=== PATIENT | female | born 1990 | race American Indian/Alaskan Native ===

== ENCOUNTER 2016-09-21 00:17 | Emergency (ER) | payer BC, MEDICAID ==
[2016-09-21 00:18] VITALS: BMI 24.7
[2016-09-21 00:32] VITALS: PULSE 105; RESP 18; TEMP 97.9; O2SAT 99
--- NOTE | 2016-09-21 00:43 | ED PDOC ---
Arrival/HPI - General Historian: Patient - History of Present Illness Time/Duration: 1 week Context: Home <Solomon Aguirre - Last Filed: 09/21/16 00:39> <Naseem Almanza - Last Filed: 09/21/16 02:47> - General Chief Complaint: Female Genitourinary Time Seen by Provider: 09/21/16 00:29 - History of Present Illness Narrative History of Present Illness (Text): 09/21/16 00:40 This 26 yo female with pmh hyperthyroidism, presents to this ED c/o abdominal pain x 1 week. Pain has worsen last 2 days. Patient admits urinary frequency. Denies vaginal discharge, dysuria, or dizziness. (Solomon Aguirre) Past Medical History - Provider Review Nursing Documentation Reviewed: Yes - Infectious Disease Hx of Infectious Diseases: None - Endocrine/Metabolic Hx Hyperthyroidism: Yes - Psychiatric Hx Substance Use: No - Anesthesia Hx Anesthesia: No <Solomon Aguirre P - Last Filed: 09/21/16 00:39> Family/Social History - Physician Review Nursing Documentation Reviewed: Yes Family/Social History: No Known Family HX Smoking Status: Never Smoked Hx Alcohol Use: No Hx Substance Use: No <Solomon Aguirre - Last Filed: 09/21/16 00:39> Allergies/Home Meds <Solomon Aguirre - Last Filed: 09/21/16 00:39> <Naseem Almanza - Last Filed: 09/21/16 02:47> Allergies/Adverse Reactions: Allergies No Known Allergies Allergy (Verified 05/26/16 10:40) Home Medications: Home Meds Medication Instructions Recorded Confirmed No Known Home Med 05/26/16 09/21/16 Review of Systems - Review of Systems Constitutional: Normal. absent: Fatigue, Weight Change, Fevers Eyes: Normal ENT: Normal Respiratory: Normal. absent: SOB, Cough, Sputum, Wheezing Cardiovascular: Normal. absent: Chest Pain, Palpitations Gastrointestinal: Abdominal Pain, Constipation. absent: Diarrhea, Nausea, Vomiting Genitourinary Female: Frequency. absent: Dysuria, Hematuria, Vaginal Bleeding, Vaginal Discharge Musculoskeletal: Normal. absent: Back Pain Skin: Normal. absent: Rash Neurological: Normal. absent: Headache, Dizziness, Focal Weakness, Gait Changes , Speech Changes, Facial Droop Endocrine: Normal Hemo/Lymphatic: Normal Psychiatric: Normal <Solomon Aguirre - Last Filed: 09/21/16 00:39> Physical Exam Temperature: Afebrile Blood Pressure: Normal Pulse: Regular Respiratory Rate: Normal Appearance: Positive for: Well-Appearing, Non-Toxic, Comfortable Pain Distress: None Mental Status: Positive for: Alert and Oriented X 3 - Systems Exam Head: Present: Atraumatic, Normocephalic Pupils: Present: PERRL Extroacular Muscles: Present: EOMI Conjunctiva: Present: Normal Mouth: Present: Moist Mucous Membranes Neck: Present: Normal Range of Motion. No: Meningeal Signs, MIDLINE TENDERNESS Respiratory/Chest: Present: Clear to Auscultation, Good Air Exchange. No: Respiratory Distress, Accessory Muscle Use, Wheezes, Retracting, Rhonchi Cardiovascular: Present: Regular Rate and Rhythm, Normal S1, S2. No: Murmurs Abdomen: Present: Normal Bowel Sounds. No: Tenderness, Distention, Peritoneal Signs, Rebound, Guarding, McBurney's Point Tender, Rovsing's Sign Present, Scars Back: Present: Normal Inspection. No: CVA Tenderness Upper Extremity: Present: Normal Inspection. No: Cyanosis, Edema Lower Extremity: Present: Normal Inspection, NORMAL PULSES, Normal ROM, Neurovascularly Intact, Capillary Refill < 2 s. No: Edema, CALF TENDERNESS, Cyanosis, Hattie's Sign, Swelling, Erythema, Temperature Abnormalties Neurological: Present: GCS=15, CN II-XII Intact, Speech Normal, Motor Func Grossly Intact, Normal Sensory Function, Normal Cerebellar Funct, Gait Normal, Memory Normal Skin: Present: Warm, Dry, Normal Color. No: Rashes Lymphatic: No: Inguinal Adenopathy Psychiatric: Present: Alert, Oriented x 3, Normal Insight, Normal Concentration <TimothySolomon P - Last Filed: 09/21/16 00:39> Medical Decision Making Re-evaluation Time: 02:46 Reassessment Condition: Re-examined, Improved <Naseem Almanza - Last Filed: 09/21/16 02:47> - Lab Interpretations Lab Results: 09/21/16 01:04 09/21/16 01:04 Lab Results 09/21/16 01:04: Sodium 139, Potassium 4.3, Chloride 103, Carbon Dioxide 28, Anion Gap 12, BUN 8, Creatinine 0.4 L, Est GFR ( Amer) > 60, Est GFR (Non -Af Amer) > 60, Random Glucose 95, Calcium 9.2, Total Bilirubin 0.4, AST 21, ALT 28, Alkaline Phosphatase 80, Total Protein 8.4 H, Albumin 4.1, Globulin 4.2 , Albumin/Globulin Ratio 1.0 L 09/21/16 01:04: WBC 6.5, RBC 4.12, Hgb 9.5 L, Hct 30.0 L, MCV 72.8 L, MCH 23.1 L , MCHC 31.7, RDW 16.0 H, Plt Count 322, MPV 9.4, Neutrophils % (Manual) 38 L, Lymphocytes % (Manual) 53 H, Atypical Lymphs % 1 H, Monocytes % (Manual) 8 H, Platelet Evaluation Normal, Anisocytosis (manual) Slight, Ovalocytes Slight 09/21/16 00:47: Urine HCG, Qual Negative 09/21/16 00:34: Urine Color Yellow, Urine Appearance Clear, Urine pH 6.5, Ur Specific [place] 1.025, Urine Protein Negative, Urine Glucose (UA) Negative, Urine Ketones Negative, Urine Blood Negative, Urine Nitrate Negative, Urine Bilirubin Negative, Urine Urobilinogen 1.0 H, Ur Leukocyte Esterase Negative - RAD Interpretation Radiology Orders: 09/21/16 01:50 TRANSVAGINAL [US] Stat - PA / CEMENT MASON HELPER / Resident Statement JOYA has reviewed & agrees with the documentation as recorded. JOYA has examined the patient and agrees with the treatment plan. <Naseem Almanza - Last Filed: 09/21/16 02:47> Disposition/Present on Arrival - Present on Arrival History of DVT/PE: No History of Uncontrolled Diabetes: No Urinary Catheter: No History of Decub. Ulcer: No History Surgical Site Infection Following: None <Solomon Aguirre - Last Filed: 09/21/16 00:39> - Present on Arrival Any Indicators Present on Arrival: No - Disposition Have Diagnosis and Disposition been Completed?: Yes Disposition Time: 02:47 <Naseem Almanza - Last Filed: 09/21/16 02:47> - Disposition Diagnosis: Ovarian cyst Disposition: HOME/ ROUTINE Condition: GOOD Discharge Instructions (ExitCare): Ovarian Cyst (ED)
[2016-09-21 01:01] LABS: PH,URINE 6.5 (4.7-8.0); URINE BILIRUBIN NEGATIVE (NEGATIVE); URINE BLOOD NEGATIVE (NEGATIVE); URINE GLUCOSE (UA) NEGATIVE (NEGATIVE); URINE KETONE NEGATIVE (NEGATIVE); URINE LEUKOCYTE ESTERASE NEGATIVE Leu/uL (NEGATIVE); URINE PROTEIN NEGATIVE mg/dL (<30 mg/dL)
[2016-09-21 01:03] LABS: URINE APPEARANCE CLEAR (CLEAR); URINE COLOR YELLOW (YELLOW)
[2016-09-21 01:35] LABS: MEAN CELL VOLUME 72.8 fL (80.0-105.0); MEAN CORPUSCULAR HEMOGLOBIN 23.1 pg (25.0-35.0); MEAN CORPUSCULAR HGB CONC 31.7 g/dl (31.0-37.0); MEAN PLATELET VOLUME 9.4 fl (7.0-11.0); PLATELET COUNT 322 10^3/uL (120.0-450.0); WHITE BLOOD COUNT 6.5 10^3/ul (4.5-11.0)
[2016-09-21 01:37] LABS: ADD MANUAL DIFF? YES
[2016-09-21 01:46] LABS: ALKALINE PHOSPHATASE 80 U/L (38-133); ALT/SGPT 28 U/L (7-56); AST/SGOT 21 U/L (15-39); BILIRUBIN,TOTAL 0.4 mg/dL (0.2-1.3); BLOOD UREA NITROGEN 8 mg/dL (7-21); CALCIUM 9.2 mg/dL (8.4-10.5); CARBON DIOXIDE 28 mmol/L (21-33); CHLORIDE 103 mmol/L (98-107); GFR AFRICAN-AMERICAN > 60; GLUCOSE,RANDOM 95 mg/dL (70-110); POTASSIUM 4.3 mmol/L (3.6-5.0); SODIUM 139 mmol/L (132-148); TOTAL PROTEIN 8.4 g/dL (5.8-8.3)
[2016-09-21 02:03] LABS: ATYPICAL LYMPHOCYTE 1 % (0.0-0.0); NEUTROPHIL 38 % (50.0-70.0)
[2016-09-21 02:04] LABS: PLATELET ESTIMATE NORMAL (NORMAL)
[2016-09-21 02:05] LABS: ANISOCYTOSIS SLIGHT; OVALOCYTES SLIGHT
--- NOTE | 2016-09-21 02:54 | ED PDOC ---
Physical Exam Vital Signs Reviewed: Yes Vital Signs Temp Pulse Resp BP Pulse Ox 09/21/16 00:29 97.9 F 105 H 18 128/82 99 Temperature: Afebrile Blood Pressure: Normal Pulse: Tachycardic Respiratory Rate: Normal Appearance: Positive for: Well-Appearing, Non-Toxic, Comfortable Pain Distress: None Mental Status: Positive for: Alert and Oriented X 3 Medical Decision Making ED Course and Treatment: 09/21/16 02:53 Patient signed out to me by JOSEE Carbajal, pending US, reevaluation and disposition. Ultrasound results reviewed: EXAM: US Pelvis, Transvaginal FINDINGS: Uterus/cervix: The uterus measures 7.8 x 4.6 x 6.5 cm Normal endometrial stripe thickness. No myometrial mass.The endometrial stripe measures 1.2 cm. Right ovary: Probable dominant ovarian follicular cyst present on the right. This measures 1.6 cm. Normal blood flow. Left ovary: Unremarkable. No mass. Normal blood flow. Free fluid: No free fluid. IMPRESSION: No acute findings 09/21/16 04:18 On re-evaluation, patient feels better and is in no acute distress. I have discussed the results and plan with the patient, who expresses understanding. Patient in agreement with plan to be discharged home. Patient is stable for discharge. Patient was instructed to follow up with physician or return if symptoms worsen or new concerning symptoms arise. 09/21/16 06:41 recieved call from lab ua preg weakly positive , serum bhcg 25 - Lab Interpretations Lab Results: 09/21/16 01:04 09/21/16 01:04 Lab Results 09/21/16 01:04: Sodium 139, Potassium 4.3, Chloride 103, Carbon Dioxide 28, Anion Gap 12, BUN 8, Creatinine 0.4 L, Est GFR ( Amer) > 60, Est GFR (Non -Af Amer) > 60, Random Glucose 95, Calcium 9.2, Total Bilirubin 0.4, AST 21, ALT 28, Alkaline Phosphatase 80, Total Protein 8.4 H, Albumin 4.1, Globulin 4.2 , Albumin/Globulin Ratio 1.0 L 09/21/16 01:04: WBC 6.5, RBC 4.12, Hgb 9.5 L, Hct 30.0 L, MCV 72.8 L, MCH 23.1 L , MCHC 31.7, RDW 16.0 H, Plt Count 322, MPV 9.4, Neutrophils % (Manual) 38 L, Lymphocytes % (Manual) 53 H, Atypical Lymphs % 1 H, Monocytes % (Manual) 8 H, Platelet Evaluation Normal, Anisocytosis (manual) Slight, Ovalocytes Slight 09/21/16 00:47: Urine HCG, Qual Negative 09/21/16 00:34: Urine Color Yellow, Urine Appearance Clear, Urine pH 6.5, Ur Specific [place] 1.025, Urine Protein Negative, Urine Glucose (UA) Negative, Urine Ketones Negative, Urine Blood Negative, Urine Nitrate Negative, Urine Bilirubin Negative, Urine Urobilinogen 1.0 H, Ur Leukocyte Esterase Negative - RAD Interpretation Radiology Orders: 09/21/16 01:50 TRANSVAGINAL [US] Stat - Scribe Statement The provider has reviewed the documentation as recorded by the Scribe Anabel Mcnally All medical record entries made by the Scribe were at my direction and personally dictated by me. I have reviewed the chart and agree that the record accurately reflects my personal performance of the history, physical exam, medical decision making, and the department course for this patient. I have also personally directed, reviewed, and agree with the discharge instructions and disposition. Disposition/Present on Arrival - Present on Arrival Any Indicators Present on Arrival: No History of DVT/PE: No History of Uncontrolled Diabetes: No Urinary Catheter: No History of Decub. Ulcer: No History Surgical Site Infection Following: None - Disposition Have Diagnosis and Disposition been Completed?: Yes Diagnosis: Ovarian cyst Disposition: HOME/ ROUTINE Disposition Time: 03:05 Condition: GOOD Discharge Instructions (ExitCare): Ovarian Cyst (ED)
[2016-09-21 03:04] VITALS: BP 129/73
--- NOTE | 2016-09-21 10:37 | US ---
HISTORY: pelvic pain COMPARISON: None available. TECHNIQUE: Transvaginal FINDINGS: UTERUS: Measures 7.8 x 4.5 x 6.4 cm. Normal in size and anteverted appearance. No fibroid or other mass lesion seen. ENDOMETRIUM: Measures 12 mm in diameter. Unremarkable. CERVIX: No cervical abnormality identified. RIGHT OVARY: Measures 3.4 x 1.8 x 3 point cm. No solid mass. Normal flow. A dominant right ovarian follicular cyst suggested measuring 1.3 x 1.2 x 1.6 cm LEFT OVARY: Measures 3.2 x 1.5 x 2.9 cm. No solid mass. Normal flow. FREE FLUID: No significant free fluid noted. OTHER FINDINGS: None. IMPRESSION: Right ovarian dominant follicular cyst -otherwise unremarkable. Preliminary V rad report provided. V rad report concordant with this report
== END 2016-09-21 03:07 | disposition home or self-care (01) ==
LOC: ED 00:17
DX: N83.201 Unspecified ovarian cyst, right side (principal)

== ENCOUNTER 2016-09-24 14:18 | Emergency (ER) | payer BC ==
[2016-09-24 14:19] VITALS: BMI 24.7
[2016-09-24 14:31] VITALS: TEMP 98.6; O2SAT 99
[2016-09-24] MEDS ORDERED: Sodium Chloride 0.9% 1,000 ML IV STA (14:50)
--- NOTE | 2016-09-24 14:53 | ED PDOC ---
Arrival/HPI - General Chief Complaint: Abdominal Pain Time Seen by Provider: 09/24/16 14:44 Historian: Patient - History of Present Illness Narrative History of Present Illness (Text): 09/24/16 14:50 26 year old female, pmh including hyperthyroidism, nkda, LMP: around 1st week of august 2016, , approx. 3-4 weeks as per patient, stated that she has abdominal cramp on and off x 2 weeks. Pt. was seen in the ER about 3 days ago, told she has ovarian cyst then later told she is , beta hcg at weak level, here for the follow up today. Pt. stated that she has no urinary symptoms, admits been having hard stool for the past 2 weeks, last bowel movement was this morning with small hard stool, no rectal pain, no vaginal bleeding or discharge, no nausea or vomiting, appetize remains the approximately the same, no other medical or psychological complaints. Time/Duration: < month Past Medical History - Provider Review Nursing Documentation Reviewed: Yes - Infectious Disease Hx of Infectious Diseases: None - Cardiac Hx Cardiac Disorders: No - Pulmonary Hx Respiratory Disorders: No - Neurological Hx Neurological Disorder: No - HEENT Hx HEENT Disorder: No - Endocrine/Metabolic Hx Hyperthyroidism: Yes - Hematological/Oncological Hx Blood Disorders: No - Integumentary Hx Dermatological Disorder: No - Musculoskeletal/Rheumatological Hx Musculoskeletal Disorders: No - Gastrointestinal Hx Gastrointestinal Disorders: No - Genitourinary/Gynecological Hx Genitourinary Disorders: No - Psychiatric Hx Psychophysiologic Disorder: No Hx Substance Use: No - Anesthesia Hx Anesthesia: No Family/Social History - Physician Review Nursing Documentation Reviewed: Yes Family/Social History: Unknown Family HX Smoking Status: Never Smoked Hx Alcohol Use: No Hx Substance Use: No Allergies/Home Meds Allergies/Adverse Reactions: Allergies No Known Allergies Allergy (Verified 09/24/16 14:26) Review of Systems - Review of Systems Constitutional: absent: Fatigue, Fevers Eyes: absent: Vision Changes ENT: absent: Hearing Changes Respiratory: absent: SOB, Cough, Sputum Cardiovascular: absent: Chest Pain Gastrointestinal: Abdominal Pain. absent: Diarrhea, Nausea, Vomiting Musculoskeletal: absent: Arthralgias, Back Pain, Neck Pain, Joint Swelling, Myalgias Neurological: absent: Headache, Dizziness, Focal Weakness, Gait Changes, Speech Changes Psychiatric: absent: Anxiety, Depression, Suicidal Ideation Physical Exam Vital Signs Reviewed: Yes Vital Signs Temp Pulse Resp BP Pulse Ox 09/24/16 17:00 91 H 18 123/64 99 09/24/16 15:29 102 H 18 125/69 99 09/24/16 14:30 98.6 F 124 H 17 127/72 99 Temperature: Afebrile Blood Pressure: Normal Pulse: Tachycardic Respiratory Rate: Normal Appearance: Positive for: Well-Appearing, Non-Toxic, Comfortable Pain Distress: Mild Mental Status: Positive for: Alert and Oriented X 3 - Systems Exam Head: Present: Atraumatic, Normocephalic Pupils: Present: PERRL Extroacular Muscles: Present: EOMI Conjunctiva: Present: Normal Mouth: Present: Moist Mucous Membranes Neck: Present: Normal Range of Motion, Trachea Midline. No: Meningeal Signs, MIDLINE TENDERNESS, Paraspinal Tenderness, Lymphadenopathy Respiratory/Chest: Present: Clear to Auscultation, Good Air Exchange. No: Respiratory Distress, Accessory Muscle Use, Wheezes, Decreased Breath Sounds, Rales, Retracting, Rhonchi, Tachypneic, Tender to Palpation, Other Cardiovascular: Present: Regular Rate and Rhythm, Normal S1, S2. No: Murmurs Abdomen: Present: Normal Bowel Sounds. No: Tenderness, Distention, Peritoneal Signs, Rebound, Guarding Genitourinary/Pelvic Exam: Present: Normal External Genitalia, Vaginal Discharge (vaginal canal noted to have cottage cheese like material with cream white color), Cervical os Closed, Other (female [employer] global product leadership: TEODORO Maldonado). No : Vaginal Bleeding, Vaginal Lesions, Adenexal Tenderness, Adenexal Mass, Cervical Motion Tendernes, Odor Back: Present: Normal Inspection Upper Extremity: Present: Normal Inspection. No: Cyanosis, Edema Lower Extremity: Present: Normal Inspection. No: Edema Neurological: Present: GCS=15, Speech Normal, Motor Func Grossly Intact, Gait Normal, Memory Normal Skin: Present: Warm, Dry, Normal Color. No: Rashes Psychiatric: Present: Alert, Oriented x 3, Normal Insight, Normal Concentration Medical Decision Making ED Course and Treatment: 09/24/16 14:55 -labs/ua/beta hcg -transvaginal sonogram -IVF bolus/tylenol -observe and reassess 09/24/16 16:41 -Labs are non-significant except beta hcg 91.60 (around 92) which is uptrend from the previous charted beta hcg 25 with lab ua preg weakly positive on 06:41, +vaginal yeast cell noted. -Sonogram show cyst on the rt. ovary with no intrauterine gestational sac identified which I discussed with Dr. Zayda Portillo and stated that this is likely too early to tell which the beta hcg today is around 92 approx. 3-4 weeks. -Pain resolved. Abdominal is soft with no tenderness or guarding. -Urinalysis show no UTI but there is vaginal yeast cell noted, physical examination does show cottage cheese like vaginal yeast. -Case discussed with ER attending Dr. Brantley, he agreed on the treatment and dispo plan. -Discharge home with topical antifungal vaginal cream, return to the ER for repeat betahcg in 48 hours but return sooner for any new or worsening signs or symptoms, follow up with your own pmd and obgyn within 2 days, return to the ER for any new or worsening signs or symptoms. - Lab Interpretations Lab Results: 09/24/16 14:55 09/24/16 14:55 Lab Results 09/24/16 15:25: Urine Color Yellow, Urine Appearance Clear, Urine pH 6.0, Ur Specific [place] 1.020, Urine Protein Trace H, Urine Glucose (UA) Negative, Urine Ketones Trace H, Urine Blood Trace-intact H, Urine Nitrate Negative, Urine Bilirubin Negative, Urine Urobilinogen 0.2, Ur Leukocyte Esterase Negative , Urine RBC 2 - 5, Urine WBC 0 - 2, Ur Epithelial Cells 6 - 8, Urine Bacteria Many, Urine Other Uyeast 09/24/16 14:55: Beta HCG, Quant 91.60 H 09/24/16 14:55: Sodium 141, Potassium 4.5, Chloride 105, Carbon Dioxide 26, Anion Gap 15, BUN 14, Creatinine 0.4 L, Est GFR ( Amer) > 60, Est GFR ( Non-Af Amer) > 60, Random Glucose 105, Calcium 9.4, Total Bilirubin 0.4, AST 20 , ALT 20, Alkaline Phosphatase 84, Total Protein 8.6 H, Albumin 4.2, Globulin 4.5, Albumin/Globulin Ratio 0.9 L 09/24/16 14:55: WBC 6.2, RBC 4.50, Hgb 10.3 L, Hct 32.5 L, MCV 72.2 L, MCH 22.9 L, MCHC 31.7, RDW 16.3 H, Plt Count 386, MPV 9.7, Gran % 48.9 L, Lymph % (Auto) 36.2 H, [place] % (Auto) 14.1 H, Eos % (Auto) 0.6 L, Baso % (Auto) 0.2, Gran # 3.04 , Lymph # 2.3, [place] # 0.9 H, Eos # 0.0, Baso # 0.01 I have reviewed the lab results: Yes Interpretation: Abnormal lab values (beta hcg 91.60 (around 92) which is uptrend from the previous charted beta hcg 25 with lab ua preg weakly positive on 09/21/16 06:41, +vaginal yeast cell noted.) - RAD Interpretation Radiology Orders: 09/24/16 14:46 TRANSVAGINAL [US] Stat Pelvic ultrasound History: Lower pelvic cramps. Comparison: Ultrasound from 09/21/2016 Technique: Transabdominal and transvaginal ultrasonography images of the uterus and both adnexa obtained. Findings: The uterus is anteverted and measures 7.8 x 3.7 x 4.8 centimeters. The endometrium measures 1.3 centimeters. The cervix measures 3.1 centimeters. Suboptimal evaluation of the cervix. No intrauterine gestational sac identified. The right ovary measures 2.3 x 2.2 x 2.3 centimeters. A hypoechoic slightly complex cyst measuring 1.4 x 1.4 x 1.5 centimeters is noted. Doppler flow seen within the right ovary. Left ovary measures 2 x 1.5 x 1.7 centimeter. Doppler flow seen within the left ovary. No significant free fluid in the cul-de-sac. Impression: No intrauterine gestational sac identified. Slightly complex cyst in the right ovary. Follow-up ultrasound to ensure resolution should be obtained. According to discussion with JOSEE Ball, beta HCG is upward stranding. Current beta HCG 92. Based on current HCG levels, early can be considered. However, follow -up beta hCG should be obtained. Ectopic or spontaneous cannot be excluded based on current imaging. Close interval follow-up should be obtained. Discussed with JOSEE Ball at approximately 4:10 p.m. on 09/24/2016. Practical Nurse Clinical Coordinator: Radiologist - Medication Orders Current Medication Orders: Discontinued Medications Acetaminophen (Tylenol 325mg Tab) 650 mg PO STAT STA Stop: 09/24/16 14:51 Last Admin: 09/24/16 15:32 Dose: 650 mg Sodium Chloride (Sodium Chloride 0.9%) 1,000 mls @ 999 mls/hr IV .Q1H1M STA Stop: 09/24/16 15:50 Last Admin: 09/24/16 17:00 Dose: - PA / BUSINESS CONTINUITY COORDINATOR / Resident Statement MD/ has reviewed & agrees with the documentation as recorded. Disposition/Present on Arrival - Present on Arrival Any Indicators Present on Arrival: No History of DVT/PE: No History of Uncontrolled Diabetes: No Urinary Catheter: No History of Decub. Ulcer: No History Surgical Site Infection Following: None - Disposition Have Diagnosis and Disposition been Completed?: Yes Diagnosis: , Vaginal yeast infection Disposition: HOME/ ROUTINE Disposition Time: 16:49 Patient Plan: Discharge Patient Problems: Current Active Problems Problem Status Onset Acute Vaginal yeast infection Acute Condition: IMPROVED Additional Instructions: Discharge home with topical antifungal vaginal cream, return to the ER for repeat betahcg in 48 hours but return sooner for any new or worsening signs or symptoms, follow up with your own pmd and obgyn within 2 days, return to the ER for any new or worsening signs or symptoms. Prescriptions: Miconazole 2% Vaginal [Monistat 7 Vaginal Cream] 1 applic VG HS #1 tube Referrals: PCP,NO [Primary Care Provider] - Follow up with primary Jennie Hurt MD [Medical Doctor] - Follow up with primary Forms: WORK NOTE
[2016-09-24 15:14] LABS: ADD MANUAL DIFF? NO
[2016-09-24 15:30] VITALS: RESP 18
[2016-09-24 15:32] LABS: ALB/GLOB RATIO 0.9 (1.1-1.8); ALKALINE PHOSPHATASE 84 U/L (38-133); ALT/SGPT 20 U/L (7-56); AST/SGOT 20 U/L (15-39); BASO # 0.01 K/mm3 (0.0-2.0); BASO % 0.2 % (0.0-3.0); BILIRUBIN,TOTAL 0.4 mg/dL (0.2-1.3); BLOOD UREA NITROGEN 14 mg/dL (7-21); CALCIUM 9.4 mg/dL (8.4-10.5); CARBON DIOXIDE 26 mmol/L (21-33); CHLORIDE 105 mmol/L (98-107); EOS % 0.6 % (1.5-5.0); GFR AFRICAN-AMERICAN > 60; GLUCOSE,RANDOM 105 mg/dL (70-110); GRAN # 3.04 (1.4-6.5); GRAN % 48.9 % (50.0-68.0); HEMATOCRIT 32.5 % (36.0-48.0); LYMPH # 2.3 (1.2-3.4); LYMPH % 36.2 % (22.0-35.0); MEAN CELL VOLUME 72.2 fL (80.0-105.0); MEAN CORPUSCULAR HEMOGLOBIN 22.9 pg (25.0-35.0); MEAN CORPUSCULAR HGB CONC 31.7 g/dl (31.0-37.0); MEAN PLATELET VOLUME 9.7 fl (7.0-11.0); MONO # 0.9 (0.1-0.6); MONO % 14.1 % (1.0-6.0); PLATELET COUNT 386 10^3/uL (120.0-450.0); POTASSIUM 4.5 mmol/L (3.6-5.0); RED CELL DISTRIBUTION WIDTH 16.3 % (11.5-14.5); SODIUM 141 mmol/L (132-148); TOTAL PROTEIN 8.6 g/dL (5.8-8.3); WHITE BLOOD COUNT 6.2 10^3/ul (4.5-11.0)
[2016-09-24 15:40] LABS: URINE BILIRUBIN NEGATIVE (NEGATIVE); URINE BLOOD TRACE-INTACT (NEGATIVE); URINE GLUCOSE (UA) NEGATIVE (NEGATIVE); URINE KETONE TRACE mg/dL (NEGATIVE); URINE LEUKOCYTE ESTERASE NEGATIVE Leu/uL (NEGATIVE); URINE PROTEIN TRACE mg/dL (<30 mg/dL); URINE UROBILINOGEN 0.2 E.U./dL (<1 E.U./dL)
[2016-09-24 15:48] LABS: URINE APPEARANCE CLEAR (CLEAR); URINE COLOR YELLOW (YELLOW)
[2016-09-24 15:50] LABS: URINE BACTERIA MANY (NEG); URINE WBC 0 - 2 /hpf (0-6)
--- NOTE | 2016-09-24 16:13 | US ---
Pelvic ultrasound History: Lower pelvic cramps. Comparison: Ultrasound from 09/21/2016 Technique: Transabdominal and transvaginal ultrasonography images of the uterus and both adnexa obtained. Findings: The uterus is anteverted and measures 7.8 x 3.7 x 4.8 centimeters. The endometrium measures 1.3 centimeters. The cervix measures 3.1 centimeters. Suboptimal evaluation of the cervix. No intrauterine gestational sac identified. The right ovary measures 2.3 x 2.2 x 2.3 centimeters. A hypoechoic slightly complex cyst measuring 1.4 x 1.4 x 1.5 centimeters is noted. Doppler flow seen within the right ovary. Left ovary measures 2 x 1.5 x 1.7 centimeter. Doppler flow seen within the left ovary. No significant free fluid in the cul-de-sac. Impression: No intrauterine gestational sac identified. Slightly complex cyst in the right ovary. Follow-up ultrasound to ensure resolution should be obtained. According to discussion with JOSEE Ball, beta HCG is upward stranding. Current beta HCG 92. Based on current HCG levels, early can be considered. However, follow-up beta hCG should be obtained. Ectopic or spontaneous cannot be excluded based on current imaging. Close interval follow-up should be obtained. Discussed with JOSEE Ball at approximately 4:10 p.m. on 09/24/2016.
[2016-09-24 17:05] VITALS: BP 123/64; PULSE 91
== END 2016-09-24 17:41 | disposition home or self-care (01) ==
LOC: ED 14:18
DX: O98.811 Other maternal infectious and parasitic diseases complicating pregnancy, first trimester (principal); B37.3 Candidiasis of vulva and vagina

== ENCOUNTER 2016-09-26 14:08 | Emergency (ER) | payer BC ==
[2016-09-26 14:09] VITALS: BMI 24.7
[2016-09-26 15:13] VITALS: TEMP 98.3; O2SAT 100
[2016-09-26 16:06] LABS: URINE APPEARANCE CLEAR (CLEAR); URINE BILIRUBIN NEGATIVE (NEGATIVE); URINE BLOOD NEGATIVE (NEGATIVE); URINE COLOR YELLOW (YELLOW); URINE GLUCOSE (UA) NEGATIVE (NEGATIVE); URINE KETONE NEGATIVE (NEGATIVE); URINE LEUKOCYTE ESTERASE NEGATIVE Leu/uL (NEGATIVE); URINE PROTEIN NEGATIVE mg/dL (<30 mg/dL); URINE UROBILINOGEN 0.2 E.U./dL (<1 E.U./dL)
[2016-09-26 17:48] VITALS: BP 125/78; RESP 18
--- NOTE | 2016-09-26 18:11 | ED PDOC ---
Arrival/HPI - General Chief Complaint: Medical Clearance Time Seen by Provider: 09/26/16 15:09 Historian: Patient - History of Present Illness Narrative History of Present Illness (Text): 09/26/16 18:10 26yr old female presents today for repeat beta hcg. pt states that she was seen in the ER 2 days ago and had Ultrasound and was told B-hcg was low and needed to be repeated; pt states she has been having intermittent lower abdominal pain. + constipation. denies fever/chills. no vaginal bleeding or discharge. pt denies any urinary symptoms. pt states she is being treated for yeast infection. pt states she has slight lower abdominal pressure. no vomiting/ diarrhea. pt states she has appointment with SUPERVISOR NET MAKING in 4 days. no other complaints. Time/Duration: 1 week Symptom Onset: Gradual Symptom Course: Unchanged Quality: Pressure Severity Level: 2 Past Medical History - Provider Review Nursing Documentation Reviewed: Yes - Travel History Have you recently traveled outside [place] w/in the past 3 mons?: No - Infectious Disease Hx of Infectious Diseases: None - Cardiac Hx Cardiac Disorders: No - Pulmonary Hx Respiratory Disorders: No - Neurological Hx Neurological Disorder: No - HEENT Hx HEENT Disorder: No - Endocrine/Metabolic Hx Hyperthyroidism: Yes - Hematological/Oncological Hx Blood Disorders: No - Integumentary Hx Dermatological Disorder: No - Musculoskeletal/Rheumatological Hx Musculoskeletal Disorders: No - Gastrointestinal Hx Gastrointestinal Disorders: No - Genitourinary/Gynecological Hx Genitourinary Disorders: No - Psychiatric Hx Psychophysiologic Disorder: No Hx Substance Use: No - Anesthesia Hx Anesthesia: No Family/Social History - Physician Review Nursing Documentation Reviewed: Yes Family/Social History: Unknown Family HX Smoking Status: Never Smoked Hx Alcohol Use: No Hx Substance Use: No Allergies/Home Meds Allergies/Adverse Reactions: Allergies No Known Allergies Allergy (Verified 09/26/16 15:09) Review of Systems - Review of Systems Constitutional: absent: Fatigue, Fevers Respiratory: absent: SOB, Cough Cardiovascular: absent: Chest Pain, Palpitations Gastrointestinal: Abdominal Pain, Constipation. absent: Diarrhea, Nausea, Vomiting Genitourinary Female: absent: Dysuria, Frequency, Hematuria, Vaginal Bleeding, Vaginal Discharge Musculoskeletal: absent: Arthralgias, Back Pain, Neck Pain Skin: absent: Rash, Pruritis Neurological: absent: Headache, Dizziness Psychiatric: absent: Anxiety, Depression, Suicidal Ideation Physical Exam Vital Signs Reviewed: Yes Vital Signs Temp Pulse Resp BP Pulse Ox 09/26/16 17:47 108 H 18 125/78 100 09/26/16 15:11 98.3 F 110 H 19 133/80 100 Temperature: Afebrile Blood Pressure: Normal Pulse: Tachycardic Respiratory Rate: Normal Appearance: Positive for: Well-Appearing, Non-Toxic, Comfortable Pain Distress: None Mental Status: Positive for: Alert and Oriented X 3 - Systems Exam Head: Present: Atraumatic Mouth: Present: Moist Mucous Membranes Neck: Present: Normal Range of Motion Respiratory/Chest: Present: Clear to Auscultation, Good Air Exchange. No: Respiratory Distress, Accessory Muscle Use Cardiovascular: Present: Regular Rate and Rhythm, Normal S1, S2. No: Murmurs Abdomen: Present: Normal Bowel Sounds. No: Tenderness, Distention, Peritoneal Signs, Rebound, Guarding Back: Present: Normal Inspection Upper Extremity: Present: Normal ROM Lower Extremity: Present: Normal ROM Neurological: Present: GCS=15 Skin: Present: Warm, Dry, Normal Color. No: Rashes Psychiatric: Present: Alert, Oriented x 3 Medical Decision Making ED Course and Treatment: 09/26/16 18:12 pt non toxic well appearing; no distress. beta hcg; 329 increased from 91. UA; wnl pt non toxic well appearing; no distress. abdomen is non tender; pt resting comfortably. vitals improved. labs from 2 recent visits reviewed; will d/c home to f/u with SUPER[employer]. pt has appointment schedule for this monday (4 days) advised patient that she must f/u with SUPER[employer]OR [employer] to confirm . even though beta improving we must still be worried about ectopic. stressed importance of close f/u and immediate return if symptoms worsen,persist or if new symptoms develop. impression; + test increase fluids Follow up with the fuel system maintenance supervisor within the next 2 days return immediately if symptoms worsen,persist or if new symptoms develop. - Lab Interpretations Lab Results: Lab Results 09/26/16 15:54: Urine Color Yellow, Urine Appearance Clear, Urine pH 7.0, Ur Specific [place] 1.010, Urine Protein Negative, Urine Glucose (UA) Negative, Urine Ketones Negative, Urine Blood Negative, Urine Nitrate Negative, Urine Bilirubin Negative, Urine Urobilinogen 0.2, Ur Leukocyte Esterase Negative 09/26/16 15:34: Beta HCG, Quant 329.79 H Disposition/Present on Arrival - Present on Arrival Any Indicators Present on Arrival: No History of DVT/PE: No History of Uncontrolled Diabetes: No Urinary Catheter: No History of Decub. Ulcer: No History Surgical Site Infection Following: None - Disposition Have Diagnosis and Disposition been Completed?: Yes Diagnosis: test positive Disposition: HOME/ ROUTINE Disposition Time: 18:16 Patient Plan: Discharge Condition: GOOD Additional Instructions: increase fluids Follow up with the fuel system maintenance supervisor within the next 2 days return immediately if symptoms worsen,persist or if new symptoms develop. Prescriptions: Multivit/Folic Acid/I [ Plus] 1 tab PO DAILY #30 tab Referrals: Belinda Zheng MD [Staff Provider] - [facility] - Follow up with primary
[2016-09-26 18:34] VITALS: PULSE 99
== END 2016-09-26 18:38 | disposition home or self-care (01) ==
LOC: ED 14:08
DX: Z32.01 Encounter for pregnancy test, result positive (principal); E05.90 Thyrotoxicosis, unspecified without thyrotoxic crisis or storm

== ENCOUNTER 2016-10-05 17:27 | Observation (INO) | payer BC ==
[2016-10-05 17:50] VITALS: TEMP 98.8; O2SAT 100; BMI 25.3
--- NOTE | 2016-10-05 18:43 | ED PDOC ---
Arrival/HPI - General Chief Complaint: Abdominal Pain Time Seen by Provider: 10/05/16 17:59 Historian: Patient - History of Present Illness Narrative History of Present Illness (Text): 10/05/16 18:40 Patient reports 3 wk history of suprapubic pain. Otherwise: (-) vaginal bleeding, (-) N/V, (-) fever, (-) urinary symptoms, (-) prior salpingitis, (-) prior ectopic . Has (-) care and (+) prior OB ultrasound - 3 weeks ago, done here, showed (-) IUP. [facility]NER HISTORY: 3 Para 1 AB 1 OB: in [place] Past Medical History - Provider Review Nursing Documentation Reviewed: Yes - Infectious Disease Hx of Infectious Diseases: None - Cardiac Hx Cardiac Disorders: No - Pulmonary Hx Respiratory Disorders: No - Neurological Hx Neurological Disorder: No - HEENT Hx HEENT Disorder: No - Endocrine/Metabolic Hx Endocrine Disorders: Yes Hx Hyperthyroidism: Yes Other/Comment: Over Active Thyroid - Hematological/Oncological Hx Blood Disorders: No - Integumentary Hx Dermatological Disorder: No - Musculoskeletal/Rheumatological Hx Musculoskeletal Disorders: No - Gastrointestinal Hx Gastrointestinal Disorders: No - Genitourinary/Gynecological Hx Genitourinary Disorders: No - Psychiatric Hx Psychophysiologic Disorder: No Hx Substance Use: No - Anesthesia Hx Anesthesia: No Family/Social History - Physician Review Nursing Documentation Reviewed: Yes Family/Social History: No Known Family HX Smoking Status: Never Smoked Hx Alcohol Use: No Hx Substance Use: No Allergies/Home Meds Allergies/Adverse Reactions: Allergies No Known Allergies Allergy (Verified 09/26/16 15:09) Review of Systems - Review of Systems Constitutional: Normal. absent: Fatigue, Weight Change, Fevers Respiratory: Normal. absent: SOB, Cough, Sputum Cardiovascular: Normal. absent: Chest Pain, Palpitations Gastrointestinal: Normal, Abdominal Pain. absent: Stool Changes, Appetite Changes Genitourinary Female: Normal. absent: Dysuria, Frequency, Hematuria Musculoskeletal: Normal. absent: Arthralgias, Back Pain, Neck Pain Skin: Normal. absent: Rash, Pruritis, Skin Lesions Physical Exam - Physical Exam Narrative Physical Exam (Text): 10/05/16 18:42 GENERAL APPEARANCE: Patient is awake, alert, oriented x 3, in no acute distress. SKIN: Warm, dry; (-) cyanosis. EYES: (-) conjunctival pallor. ENMT: Mucous membranes moist. NECK: (-) tenderness, (-) stiffness, (-) lymphadenopathy. CHEST AND RESPIRATORY: (-) rales, (-) rhonchi, (-) wheezes; breath sounds equal bilaterally. HEART AND CARDIOVASCULAR: (-) irregularity; (-) murmur, (-) gallop. ABDOMEN AND GI: Soft; (-) tenderness. EXTREMITIES: (-) deformity. NEURO AND PSYCH: Mental status as above; (-) focal findings. Vital Signs Temp Pulse Resp BP Pulse Ox 10/05/16 21:00 89 18 135/71 100 10/05/16 19:00 98 H 18 137/79 100 10/05/16 17:49 98.8 F 117 H 20 139/82 100 Medical Decision Making ED Course and Treatment: 10/05/16 18:42 26-year-old female, presents with 3 week history of suprapubic pain, with no vaginal bleeding. Plan: -- Labs -- IV fluids -- Urinalysis -- Reassess and disposition -- TV US - Lab Interpretations Lab Results: Lab Results 10/05/16 07:15: Urine Color Yellow, Urine Appearance Clear, Urine pH 6.5, Ur Specific [place] 1.020, Urine Protein Negative, Urine Glucose (UA) Negative, Urine Ketones Trace H, Urine Blood Negative, Urine Nitrate Negative, Urine Bilirubin Negative, Urine Urobilinogen 0.2, Ur Leukocyte Esterase Negative I have reviewed the lab results: Yes Interpretation: All labs normal - RAD Interpretation Narrative RAD Interpretations (Text): 10/05/16 21:57 TV US: FINDINGS: Gestation: A intrauterine gestational sac with mean sac diameter of less than 1 cm is observed, too small for ultrasound dating which could reflect a early . A yolk sac is also visualized. No pole or heart motion is identified. Clinical correlation recommended including beta hCG. No definite evidence of ectopic , though ectopic cannot be excluded. Placenta/amniotic fluid: Cannot be adequately evaluated due to the early gestational age. Uterus/cervix: Probable fibroids. Ovaries: Right ovarian cysts which could reflect follicles are observed measuring up to 2 cm in size. Free fluid: No free fluid. IMPRESSION: 1. A intrauterine gestational sac with mean sac diameter of less than 1 cm is observed, too small for ultrasound dating which could reflect a early . A yolk sac is also visualized. No pole or heart motion is identified. Clinical correlation recommended including beta hCG. 2. No definite evidence of ectopic , though ectopic cannot be excluded. 3. Right ovarian cysts which could reflect follicles are observed measuring up to 2 cm in size. Dictated and Authenticated by: Shiv Epperson MD 10/05/2016 8:07 PM Eastern Time ([place] & [place]) Radiology Orders: 10/05/16 18:24 OB TRANSVAGINAL [US] Stat ED OBSERVATION Date of observation admission: 10/05/16 Time of observation admission: 18:30 - Observation admission statement Patient is being placed in observation because:: Due to patient's c/o abdominal pain and she is , need to r/o ectopic. - Goals of Observation Goals of observation are:: To monitor patient's symptoms. - Progress Note Progress Note: 10/05/16 20:00 Labs reviewed and are within normal limits. On reevaluation, patient's laying in bed comfortably distress. Reports no new complaints at this time, denies any vaginal bleeding. On exam, abdomen remained soft and nontender. Patient is awaiting ultrasound at this time. 10/05/16 21:00 US done, results still pending. Patient sitting up comfortably in a chair in no acute distress. 10/05/16 22:00 US results d/w the patient in great detail. Considering lab and ultrasound results, patient was advised to return to the emergency room after 2 days for repeat beta Quant and possible ultrasound if her beta Quant is still rising. Patient states she fully agrees with and understands discharge instructions. States that she agrees with the plan and disposition. Verbalized and repeated discharge instructions and plan. I have given the patient opportunity to ask any additional questions. Follow up with primary care physician after 2 days without fail. Return to the emergency room at any time for any new or worsening symptoms. - PA / SECURITY POLICE / Resident Statement MD/DO has reviewed & agrees with the documentation as recorded. Disposition/Present on Arrival - Present on Arrival Any Indicators Present on Arrival: No History of DVT/PE: No History of Uncontrolled Diabetes: No Urinary Catheter: No History of Decub. Ulcer: No History Surgical Site Infection Following: None - Disposition Have Diagnosis and Disposition been Completed?: Yes Diagnosis: Threatened miscarriage Disposition: HOME/ ROUTINE Disposition Time: 18:30 (Pt placed in ED observation. ) Patient Plan: Discharge Condition: GOOD
[2016-10-05 19:07] VITALS: RESP 18
[2016-10-05 19:26] LABS: PH,URINE 6.5 (4.7-8.0); URINE BILIRUBIN NEGATIVE (NEGATIVE); URINE BLOOD NEGATIVE (NEGATIVE); URINE GLUCOSE (UA) NEGATIVE (NEGATIVE); URINE KETONE TRACE mg/dL (NEGATIVE); URINE LEUKOCYTE ESTERASE NEGATIVE Leu/uL (NEGATIVE); URINE PROTEIN NEGATIVE mg/dL (<30 mg/dL); URINE UROBILINOGEN 0.2 E.U./dL (<1 E.U./dL)
[2016-10-05 19:39] LABS: ADD MANUAL DIFF? NO
[2016-10-05 19:50] LABS: BASO # 0.01 K/mm3 (0.0-2.0); BASO % 0.1 % (0.0-3.0); EOS % 0.3 % (1.5-5.0); GRAN # 4.49 (1.4-6.5); GRAN % 57.4 % (50.0-68.0); HEMATOCRIT 28.4 % (36.0-48.0); LYMPH # 2.6 (1.2-3.4); LYMPH % 33.7 % (22.0-35.0); MEAN CELL VOLUME 71.5 fL (80.0-105.0); MEAN CORPUSCULAR HEMOGLOBIN 22.9 pg (25.0-35.0); MEAN PLATELET VOLUME 9.6 fl (7.0-11.0); MONO # 0.7 (0.1-0.6); MONO % 8.5 % (1.0-6.0); PLATELET COUNT 358 10^3/uL (120.0-450.0); RED CELL DISTRIBUTION WIDTH 16.5 % (11.5-14.5); WHITE BLOOD COUNT 7.8 10^3/ul (4.5-11.0)
[2016-10-05 19:53] LABS: URINE APPEARANCE CLEAR (CLEAR); URINE COLOR YELLOW (YELLOW)
[2016-10-05 20:17] LABS: ALKALINE PHOSPHATASE 87 U/L (38-133); ALT/SGPT 28 U/L (7-56); AST/SGOT 38 U/L (15-39); BILIRUBIN,TOTAL 0.3 mg/dL (0.2-1.3); BLOOD UREA NITROGEN 10 mg/dL (7-21); CALCIUM 9.3 mg/dL (8.4-10.5); CARBON DIOXIDE 26 mmol/L (21-33); CHLORIDE 106 mmol/L (98-107); GFR AFRICAN-AMERICAN > 60; GLUCOSE,RANDOM 104 mg/dL (70-110); SODIUM 140 mmol/L (132-148); TOTAL PROTEIN 7.5 g/dL (5.8-8.3)
[2016-10-05 21:00] VITALS: BP 135/71; PULSE 89
--- NOTE | 2016-10-06 10:56 | US ---
PROCEDURE: 1st trimester ultrasound. HISTORY: Abdominal pain. Ectopic gestation suspected. COMPARISON: 09/24/2016.. TECHNIQUE: Standard protocol for this study/examination. FINDINGS: LMP: 08/13/2016 Prior examinations from the current : 09/24/2016 TECHNIQUE: Real-time 2D imaging, duplex and color Doppler. FINDINGS: No pole identified. Gestational age based on gestational sac measurement below threshold for calculation of reliable gestational age. Gestational sac measurement 8.9 mm. Gestational age derived from LMP: 7 weeks 4 days JHONY based on LMP: May 20, 2017. JHONY based on biometry: Below threshold for calculation of a reliable gestational age based on sac measurement. Gestational concordance documented Yolk sac documented identified Uterus: Unremarkable. No Cervical abnormalities: Negative examination for cervical dilatation or effacement. Subchorionic hemorrhage: None ADNEXA: Right: 3.5 x 2.1 cm. Two small adnexal cysts 1.2 x 1 cm and 1.9 x 2 cm. Normal Doppler arterial waveform documented. Left: 1.9 x 7.3 cm. Normal Doppler arterial waveform documented Fluid in the cul-de-sac: None. Cervical length 3.3 cm. IMPRESSION: Well-formed gestational sac and yolk sac documented without evidence of pole. Likely early intrauterine gestation. No visualized ectopic gestation. Additional benign and/or incidental findings described above. Concordant results (preliminary interpretation) provided by [employer]. Procedure Completed: 19:18. Preliminary ([facility]) Report: Dictated and Authenticated: 20:07 Final Interpretation: 10:08 October 05, 2016.
== END 2016-10-05 22:06 | disposition home or self-care (01) ==
LOC: ED 17:27 → EROBSV 18:30
PROVIDERS: ADMIT Emergency Medicine; ATTEND Emergency Medicine
DX: O20.0 Threatened abortion (principal); Z3A.01 Less than 8 weeks gestation of pregnancy
CPT/HCPCS: 76817; 80053; 81003; 84702; 85025; 87086; 99283; G0378

== ENCOUNTER 2016-10-08 12:07 | Emergency (ER) | payer BC ==
[2016-10-08 12:29] VITALS: BMI 24.7
[2016-10-08 12:32] VITALS: TEMP 98.3
--- NOTE | 2016-10-08 12:45 | ED PDOC ---
Arrival/HPI - General Chief Complaint: Female Genitourinary Time Seen by Provider: 10/08/16 12:35 Historian: Patient - History of Present Illness Narrative History of Present Illness (Text): 10/08/16 12:38 Latricia Willis is a 26 year old female who presents to the emergency department for follow up Ultrasound & blood WORK. Patient initially presented on the with 3 week history of suprapubic pain. Patient denies any difficulty eating but reports mild abdominal pain. Patient also reports her LNMP to be 08/13, but notes her menstrual cycles are irregular. Patient otherwise denies any fever, chills, chest pain, shortness of breath, nausea, vomiting, diarrhea, vaginal bleeding/discharge, urinary symptoms, back pain, neck pain, headache, dizziness , or any other complaints. P: 1 A: 1 PMD: None OB: [facility] Time/Duration: < month Symptom Onset: Gradual Symptom Course: Unchanged Activities at Onset: Light Context: Home Past Medical History - Provider Review Nursing Documentation Reviewed: Yes - Infectious Disease Hx of Infectious Diseases: None - Cardiac Hx Cardiac Disorders: No - Pulmonary Hx Respiratory Disorders: No - Neurological Hx Neurological Disorder: No - HEENT Hx HEENT Disorder: No - Endocrine/Metabolic Hx Endocrine Disorders: Yes Hx Hyperthyroidism: Yes Other/Comment: Over Active Thyroid - Hematological/Oncological Hx Blood Disorders: No - Integumentary Hx Dermatological Disorder: No - Musculoskeletal/Rheumatological Hx Musculoskeletal Disorders: No - Gastrointestinal Hx Gastrointestinal Disorders: No - Genitourinary/Gynecological Hx Genitourinary Disorders: No - Psychiatric Hx Psychophysiologic Disorder: No Hx Substance Use: No - Anesthesia Hx Anesthesia: No Family/Social History - Physician Review Nursing Documentation Reviewed: Yes Family/Social History: No Known Family HX Smoking Status: Never Smoked Hx Alcohol Use: No Hx Substance Use: No Allergies/Home Meds Allergies/Adverse Reactions: Allergies No Known Allergies Allergy (Verified 10/08/16 12:29) Review of Systems - Physician Review All systems were reviewed & negative as marked: Yes - Review of Systems Constitutional: Normal. absent: Fevers Eyes: Normal ENT: Normal Respiratory: Normal. absent: SOB Cardiovascular: Normal. absent: Chest Pain Gastrointestinal: Abdominal Pain (mild abdominal pain). absent: Diarrhea, Nausea, Vomiting Genitourinary Female: Normal. absent: Dysuria, Frequency, Hematuria, Urine Output Changes, Vaginal Bleeding, Vaginal Discharge Musculoskeletal: Normal. absent: Back Pain, Neck Pain Skin: Normal Neurological: Normal. absent: Headache, Dizziness Physical Exam Vital Signs Reviewed: Yes Vital Signs Temp Pulse Resp BP Pulse Ox 10/08/16 16:00 99 H 16 118/78 99 10/08/16 14:30 100 H 17 108/80 99 10/08/16 12:31 98.3 F 114 H 16 117/76 Temperature: Afebrile Blood Pressure: Normal Pulse: Tachycardic Respiratory Rate: Normal Appearance: Positive for: Well-Appearing, Non-Toxic, Comfortable Pain Distress: None Mental Status: Positive for: Alert and Oriented X 3 - Systems Exam Head: Present: Atraumatic, Normocephalic Pupils: Present: PERRL Conjunctiva: Present: Normal Mouth: Present: Moist Mucous Membranes Neck: Present: Normal Range of Motion Respiratory/Chest: Present: Clear to Auscultation, Good Air Exchange. No: Respiratory Distress, Accessory Muscle Use Cardiovascular: Present: Regular Rate and Rhythm, Normal S1, S2. No: Murmurs Abdomen: Present: Normal Bowel Sounds. No: Tenderness, Distention, Peritoneal Signs Back: Present: Normal Inspection Upper Extremity: Present: Normal Inspection. No: Cyanosis, Edema Lower Extremity: Present: Normal Inspection. No: Edema Neurological: Present: GCS=15, CN II-XII Intact, Speech Normal Skin: Present: Warm, Dry, Normal Color. No: Rashes Psychiatric: Present: Alert, Oriented x 3, Normal Insight, Normal Concentration Medical Decision Making ED Course and Treatment: 10/08/16 12:38 Impression: 26 year old female presenting for follow up U/S & blood work. Differential Diagnosis included but are not limited to: Ectopic Plan: -- Transvaginal US -- Labs -- Reassess and disposition Prior Visits: Notes and results from previous visits were reviewed. Patient was last seen in the emergency department on 10/05/16 for suprapubic pain. Progress Notes: 10/08/16 14:15 As per veterinary technology instructor, U/S shows early with a heartbeat of 80. 10/08/16 14:55 Reevaluation: On reevaluation the patient is in no acute distress. I have discussed the results and plan with the patient, who expresses understanding. Patient given the opportunity to ask question, all questions were answered and there is agreement with the plan to discharge the patient home. Patient is stable for discharge. Patient was instructed to follow up with physician/clinic in 1-2 days or return if symptoms persist/worsen or new concerning symptoms arise. - Lab Interpretations Lab Results: 10/08/16 13:04 10/08/16 13:04 Lab Results 10/08/16 13:04: Beta HCG, Quant 6685.20 H 10/08/16 13:04: Sodium 137, Potassium 4.4, Chloride 102, Carbon Dioxide 27, Anion Gap 12, BUN 12, Creatinine 0.4 L, Est GFR ( Amer) > 60, Est GFR ( Non-Af Amer) > 60, Random Glucose 95, Calcium 10.1, Total Bilirubin 0.3, AST 22 , ALT 32, Alkaline Phosphatase 88, Total Protein 8.3, Albumin 4.2, Globulin 4.1 , Albumin/Globulin Ratio 1.0 L 10/08/16 13:04: WBC 5.0 D, RBC 4.32, Hgb 9.8 L, Hct 30.9 L, MCV 71.5 L, MCH 22.7 L, MCHC 31.7, RDW 16.4 H, Plt Count 383, MPV 9.7, Gran % 48.8 L, Lymph % ( Auto) 37.3 H, [place] % (Auto) 13.5 H, Eos % (Auto) 0.2 L, Baso % (Auto) 0.2, Gran # 2.42, Lymph # 1.9, [place] # 0.7 H, Eos # 0.0, Baso # 0.01 - RAD Interpretation Radiology Orders: 10/08/16 12:36 OB TRANSVAGINAL [US] Stat - Scribe Statement The provider has reviewed the documentation as recorded by the Scribe Roseanna Abad Provider Attestation: All medical record entries made by the Scribe were at my direction and personally dictated by me. I have reviewed the chart and agree that the record accurately reflects my personal performance of the history, physical exam, medical decision making, and the department course for this patient. I have also personally directed, reviewed, and agree with the discharge instructions and disposition. Disposition/Present on Arrival - Present on Arrival Any Indicators Present on Arrival: No History of DVT/PE: No History of Uncontrolled Diabetes: No Urinary Catheter: No History of Decub. Ulcer: No History Surgical Site Infection Following: None - Disposition Have Diagnosis and Disposition been Completed?: Yes Diagnosis: Early stage of Disposition: HOME/ ROUTINE Disposition Time: 15:00 Condition: GOOD Discharge Instructions (ExitCare): (ED) Additional Instructions: Thank you for letting us take care of you today. Your provider was Dr. Portillo. You were treated for early . The emergency medical care you received today was directed at your acute symptoms. If you were prescribed any medication, please fill it and take as directed. It may take several days for your symptoms to resolve. Return to the Emergency Department if your symptoms worsen, do not improve, or if you have any other problems. Please contact your doctor or call one of the physicians/clinics you have been referred to that are listed on the Patient Visit Information form that is included in your discharge packet. Bring any paperwork you were given at discharge with you along with any medications you are taking to your follow up visit. Our treatment cannot replace ongoing medical care by a primary care provider (PCP) outside of the emergency department. Thank you for allowing the [facility] team to be part of your care today. Follow up with your FINAL OPERATIONS TECHNICIAN doctor as scheduled in 2 weeks. Referrals: PCP,NO [Primary Care Provider] - Follow up with primary
[2016-10-08 13:05] LABS: ADD MANUAL DIFF? NO
[2016-10-08 13:18] LABS: ALKALINE PHOSPHATASE 88 U/L (38-133); ALT/SGPT 32 U/L (7-56); AST/SGOT 22 U/L (15-39); BILIRUBIN,TOTAL 0.3 mg/dL (0.2-1.3); BLOOD UREA NITROGEN 12 mg/dL (7-21); CALCIUM 10.1 mg/dL (8.4-10.5); CARBON DIOXIDE 27 mmol/L (21-33); CHLORIDE 102 mmol/L (98-107); GFR AFRICAN-AMERICAN > 60; GLUCOSE,RANDOM 95 mg/dL (70-110); POTASSIUM 4.4 mmol/L (3.6-5.0); SODIUM 137 mmol/L (132-148); TOTAL PROTEIN 8.3 g/dL (5.8-8.3)
[2016-10-08 13:26] LABS: BASO # 0.01 K/mm3 (0.0-2.0); BASO % 0.2 % (0.0-3.0); EOS % 0.2 % (1.5-5.0); GRAN # 2.42 (1.4-6.5); GRAN % 48.8 % (50.0-68.0); HEMATOCRIT 30.9 % (36.0-48.0); LYMPH # 1.9 (1.2-3.4); LYMPH % 37.3 % (22.0-35.0); MEAN CELL VOLUME 71.5 fL (80.0-105.0); MEAN CORPUSCULAR HEMOGLOBIN 22.7 pg (25.0-35.0); MEAN CORPUSCULAR HGB CONC 31.7 g/dl (31.0-37.0); MEAN PLATELET VOLUME 9.7 fl (7.0-11.0); MONO # 0.7 (0.1-0.6); MONO % 13.5 % (1.0-6.0); PLATELET COUNT 383 10^3/uL (120.0-450.0); RED CELL DISTRIBUTION WIDTH 16.4 % (11.5-14.5)
[2016-10-08 14:30] VITALS: O2SAT 99
--- NOTE | 2016-10-08 15:29 | US ---
PROCEDURE: First trimester ultrasound HISTORY: followup US COMPARISON: 10/05/2016.. TECHNIQUE: Transvaginal only. Real -time technique with 2D, duplex and color Doppler FINDINGS: LMP: 08/13/2016 Prior examinations from the current : TECHNIQUE: Real-time 2D imaging, duplex and color Doppler. FINDINGS: Cardiac activity: Present Rate: 79 BPM Measurements: Chicken rump length: 0.31 cm Gestational age based on CRL 5 weeks 6 days Gestational age derived from LMP: 8 weeks JHONY based on LMP: 05/20/2017 JHONY based on biometry: 06/04/2017 Gestational concordance documented Yolk sac identified Uterus: Unremarkable. No Cervical abnormalities: Negative examination for cervical dilatation or effacement. Subchorionic hemorrhage: None ADNEXA: Right: 2.1 x 3.3 cm. Simple cyst 1.5 x 1.7 Normal Doppler arterial waveform documented. Left: 1.5 x 2.6 cm. Normal Doppler arterial waveform documented Fluid in the cul-de-sac: IMPRESSION: Early intrauterine gestation now identified, gestational pole noted. bradycardia at which may be technical.
[2016-10-08 16:02] VITALS: BP 118/78; PULSE 99; RESP 16
== END 2016-10-08 16:02 | disposition home or self-care (01) ==
LOC: ED 12:07
DX: O26.91 Pregnancy related conditions, unspecified, first trimester (principal); Z3A.00 Weeks of gestation of pregnancy not specified

== ENCOUNTER 2016-10-17 01:13 | Emergency (ER) | payer BC ==
[2016-10-17 01:32] VITALS: BMI 25.2
[2016-10-17 01:35] VITALS: BP 128/82; PULSE 108; RESP 18; TEMP 98.5; O2SAT 99
--- NOTE | 2016-10-17 01:51 | ED PDOC ---
Arrival/HPI - General Chief Complaint: Female Genitourinary Time Seen by Provider: 10/17/16 01:17 Historian: Patient - History of Present Illness Narrative History of Present Illness (Text): 10/17/16 01:50 Latricia Willis is a 26 year old female, currently 6 weeks , P:1 A:1, who presents to the Emergency department complaining of vaginal bleeding. Patient states while at work she went to the bathroom and noted some faint blood when wiping. Patient reports associated lower abdominal cramping discomfort;none now Patient was seen in the Emergency department on 10/08/2016, had an US, which showed early intrauterine . Patient denies any nausea , vomiting, diarrhea, dysuria, urinary frequency, back pain, headache, dizziness , or any other complaints. Time/Duration: Other (today) Symptom Onset: Gradual Symptom Course: Unchanged Activities at Onset: Rest, Light Context: Home Past Medical History - Provider Review Nursing Documentation Reviewed: Yes - Infectious Disease Hx of Infectious Diseases: None - Cardiac Hx Cardiac Disorders: No - Pulmonary Hx Respiratory Disorders: No - Neurological Hx Neurological Disorder: No - HEENT Hx HEENT Disorder: No - Endocrine/Metabolic Hx Endocrine Disorders: Yes Hx Hyperthyroidism: Yes Other/Comment: Over Active Thyroid - Hematological/Oncological Hx Blood Disorders: No - Integumentary Hx Dermatological Disorder: No - Musculoskeletal/Rheumatological Hx Musculoskeletal Disorders: No - Gastrointestinal Hx Gastrointestinal Disorders: No - Genitourinary/Gynecological Hx Genitourinary Disorders: No - Psychiatric Hx Psychophysiologic Disorder: No Hx Substance Use: No - Anesthesia Hx Anesthesia: No Family/Social History - Physician Review Nursing Documentation Reviewed: Yes Family/Social History: No Known Family HX Smoking Status: Never Smoked Hx Alcohol Use: No Hx Substance Use: No Allergies/Home Meds Allergies/Adverse Reactions: Allergies No Known Allergies Allergy (Verified 10/08/16 12:29) Review of Systems - Physician Review All systems were reviewed & negative as marked: Yes - Review of Systems Constitutional: Normal. absent: Fevers Eyes: Normal ENT: Normal Respiratory: Normal. absent: SOB, Cough Cardiovascular: Normal. absent: Chest Pain Gastrointestinal: Abdominal Pain (+lower abdominal cramping). absent: Diarrhea , Nausea, Vomiting Genitourinary Female: Vaginal Bleeding. absent: Dysuria, Frequency, Urine Output Changes Musculoskeletal: Normal. absent: Back Pain, Neck Pain Skin: Normal. absent: Rash Neurological: Normal. absent: Headache, Dizziness Endocrine: Normal Hemo/Lymphatic: Normal Psychiatric: Normal Physical Exam Vital Signs Reviewed: Yes Vital Signs Temp Pulse Resp BP Pulse Ox 10/17/16 01:35 98.5 F 108 H 18 128/82 99 Temperature: Afebrile Blood Pressure: Normal Pulse: Regular Respiratory Rate: Normal Appearance: Positive for: Well-Appearing, Non-Toxic, Comfortable Pain Distress: None Mental Status: Positive for: Alert and Oriented X 3 - Systems Exam Head: Present: Atraumatic, Normocephalic Pupils: Present: PERRL Extroacular Muscles: Present: EOMI Conjunctiva: Present: Normal Mouth: Present: Moist Mucous Membranes Neck: Present: Normal Range of Motion Respiratory/Chest: Present: Clear to Auscultation, Good Air Exchange. No: Respiratory Distress, Accessory Muscle Use Cardiovascular: Present: Regular Rate and Rhythm, Normal S1, S2. No: Murmurs Abdomen: Present: Normal Bowel Sounds. No: Tenderness, Distention, Peritoneal Signs Back: Present: Normal Inspection Upper Extremity: Present: Normal Inspection. No: Cyanosis, Edema Lower Extremity: Present: Normal Inspection. No: Edema Neurological: Present: GCS=15, CN II-XII Intact, Speech Normal Skin: Present: Warm, Dry, Normal Color. No: Rashes Psychiatric: Present: Alert, Oriented x 3, Normal Insight, Normal Concentration Medical Decision Making ED Course and Treatment: 10/17/16 01:51 Impression: 26 year old female complaining of vaginal bleeding and lower abdominal cramping. Differential Diagnosis include but are not limited to: threatened miscarriage Plan: -- Transvaginal US -- Labs, Beta-HCG, blood type and screen -- UA -- Reassess and disposition Prior Visits: Notes and results from previous visits were reviewed. Progress Notes: 10/17/16 03:10 Reviewed sono, Transvaginal US shows:Estimated gestational age by crown-rump measurements is 6 weeks 4 days. Based on prior exam, the gestation should be 7 weeks 3 days. Followup is recommended. 10/17/16 04:10 On reevaluation the patient feels better and is in no acute distress. I have discussed the results and plan with the patient, who expresses understanding. Patient given the opportunity to ask question, all questions were answered and there is agreement with the plan to discharge the patient home. Patient is stable for discharge. Patient was instructed to follow up with OBGYN/physician/ clinic in 1-2 days or return if symptoms persist/worsen or new concerning symptoms arise. - Lab Interpretations Lab Results: 10/17/16 02:05 10/17/16 02:05 Lab Results 10/17/16 02:50: Blood Type Confirm O POSITIVE 10/17/16 02:05: WBC 8.4 D, RBC 4.09, Hgb 9.2 L, Hct 28.9 L, MCV 70.7 L, MCH 22.5 L, MCHC 31.8, RDW 16.4 H, Plt Count 384, MPV 9.3 10/17/16 02:05: Beta HCG, Quant 44558.00 H 10/17/16 02:05: Sodium 137, Potassium 3.9, Chloride 102, Carbon Dioxide 26, Anion Gap 13, BUN 8, Creatinine 0.4 L, Est GFR ( Amer) > 60, Est GFR (Non -Af Amer) > 60, Random Glucose 98, Calcium 9.3, Total Bilirubin 0.3, AST 19, ALT 24, Alkaline Phosphatase 79, Total Protein 8.0, Albumin 3.8, Globulin 4.1, Albumin/Globulin Ratio 0.9 L 10/17/16 02:05: Blood Type O POSITIVE, Antibody Screen Negative, BBK History Checked No verified bt 10/17/16 02:00: Urine Color Yellow, Urine Appearance Sl cloudy, Urine pH 6.0, Ur Specific [place] >= 1.030, Urine Protein Trace H, Urine Glucose (UA) Negative , Urine Ketones Negative, Urine Blood Large H, Urine Nitrate Negative, Urine Bilirubin Negative, Urine Urobilinogen 0.2, Ur Leukocyte Esterase Negative, Urine RBC 1 - 3, Urine WBC 0 - 2, Ur Epithelial Cells 6 - 8, Urine Bacteria Small, Urine HCG, Qual Positive I have reviewed the lab results: Yes - RAD Interpretation Narrative RAD Interpretations (Text): Transvaginal US shows: Gestation: Estimated gestational age by crown-rump measurements is 6 weeks 4 days. Based on prior exam, the gestation should be 7 weeks 3 days. Followup is recommended. A single intrauterine gestation is identified. Yolk sac is identified. Active heart motion is demonstrated at 128 beats per minute. Placenta/amniotic fluid: Cannot be adequately evaluated due to the early gestational age. Uterus/cervix: Unremarkable. No myometrial mass. Ovaries: Likely right corpus luteum cyst. Left ovary normal with normal flow. No mass. Free fluid: No free fluid. IMPRESSION: Estimated gestational age by crown-rump measurements is 6 weeks 4 days. Based on prior exam, the gestation should be 7 weeks 3 days. Followup is recommended. Radiology Orders: 10/17/16 01:43 OB TRANSVAGINAL [US] Stat Equipment Service Engineer: Radiologist - Scribe Statement The provider has reviewed the documentation as recorded by the Siddharthaibmarie Romeo All medical record entries made by the Siddharthaibmarie were at my direction and personally dictated by me. I have reviewed the chart and agree that the record accurately reflects my personal performance of the history, physical exam, medical decision making, and the department course for this patient. I have also personally directed, reviewed, and agree with the discharge instructions and disposition. Disposition/Present on Arrival - Present on Arrival Any Indicators Present on Arrival: No History of DVT/PE: No History of Uncontrolled Diabetes: No Urinary Catheter: No History of Decub. Ulcer: No History Surgical Site Infection Following: None - Disposition Have Diagnosis and Disposition been Completed?: Yes Diagnosis: Threatened miscarriage Disposition: HOME/ ROUTINE Disposition Time: 04:10 Patient Plan: Discharge Condition: GOOD Discharge Instructions (ExitCare): Threatened Miscarriage (ED) Additional Instructions: Rest/no strenuous physical activity/folllow up with your corrosion control specialist this week/ any recurrent severe bleeding or pain return to the emergency room
[2016-10-17 02:14] LABS: URINE BILIRUBIN NEGATIVE (NEGATIVE); URINE BLOOD LARGE (NEGATIVE); URINE GLUCOSE (UA) NEGATIVE (NEGATIVE); URINE KETONE NEGATIVE (NEGATIVE); URINE LEUKOCYTE ESTERASE NEGATIVE Leu/uL (NEGATIVE); URINE PROTEIN TRACE mg/dL (<30 mg/dL); URINE UROBILINOGEN 0.2 E.U./dL (<1 E.U./dL)
[2016-10-17 02:25] LABS: URINE APPEARANCE SL CLOUDY (CLEAR); URINE COLOR YELLOW (YELLOW)
[2016-10-17 02:28] LABS: URINE BACTERIA SMALL (NEG)
[2016-10-17 02:29] LABS: URINE WBC 0 - 2 /hpf (0-6)
[2016-10-17 02:39] LABS: ALB/GLOB RATIO 0.9 (1.1-1.8); ALKALINE PHOSPHATASE 79 U/L (38-133); ALT/SGPT 24 U/L (7-56); AST/SGOT 19 U/L (15-39); BILIRUBIN,TOTAL 0.3 mg/dL (0.2-1.3); BLOOD UREA NITROGEN 8 mg/dL (7-21); CALCIUM 9.3 mg/dL (8.4-10.5); CARBON DIOXIDE 26 mmol/L (21-33); GFR AFRICAN-AMERICAN > 60; GLUCOSE,RANDOM 98 mg/dL (70-110)
[2016-10-17 02:41] LABS: HEMATOCRIT 28.9 % (36.0-48.0); MEAN CELL VOLUME 70.7 fL (80.0-105.0); MEAN CORPUSCULAR HEMOGLOBIN 22.5 pg (25.0-35.0); MEAN CORPUSCULAR HGB CONC 31.8 g/dl (31.0-37.0); MEAN PLATELET VOLUME 9.3 fl (7.0-11.0); RED CELL DISTRIBUTION WIDTH 16.4 % (11.5-14.5); WHITE BLOOD COUNT 8.4 10^3/ul (4.5-11.0)
[2016-10-17 03:02] LABS: CHLORIDE 102 mmol/L (98-107); POTASSIUM 3.9 mmol/L (3.6-5.0); SODIUM 137 mmol/L (132-148)
--- NOTE | 2016-10-17 10:24 | US ---
PROCEDURE: OB Pelvic Ultrasound HISTORY: pain COMPARISON: None available. TECHNIQUE: Transvaginal pelvic ultrasound was performed. FINDINGS: UTERUS: Single Live intrauterine gestation. CRL equivalent to 6 wks/ 4 days gestation Gestational sac diameter equivalent to 5 wks/6 days gestation age (Ultrasound estimated): Date of delivery (Ultrasound estimated) : Heart rate: 131 bpm. Tere-gestational hemorrhage: None. Uterus measures 9.5 x 4.8 x 6.7 cm. No mass Measures 9.5 x 4.8 x 6.7 cm. Anteverted and normal in size move in size and appearance. No fibroid or other mass lesion seen. CERVIX: Long and closed. No cervical abnormality seen. RIGHT OVARY: Measures 3.4 x 2.2 x 2.8 cm. No mass. Normal flow. There is a 1.6 cm corpus luteum cyst. LEFT OVARY: Measures 3.1 x 1.4 x 1.9 cm. No mass. Normal flow. FREE FLUID: None. OTHER FINDINGS: None. IMPRESSION: Single live intrauterine gestation with mean gestational age of 6 weeks and 2 days. The estimated date of delivery by ultrasound is 06/10/2017 there is a discrepancy with the clinical dates by approximately 3 weeks. Clinical follow-up is advised. A preliminary report was provided by [employer] [facility].
== END 2016-10-17 04:47 | disposition home or self-care (01) ==
LOC: ED 01:13
DX: O20.0 Threatened abortion (principal); Z3A.01 Less than 8 weeks gestation of pregnancy

== ENCOUNTER 2016-10-20 16:35 | Observation (INO) | payer BC ==
[2016-10-20 16:35] VITALS: BMI 25.2
[2016-10-20 17:00] VITALS: TEMP 98.7
[2016-10-20] MEDS ORDERED: Morphine 4 mg/ml ISec IVP STA (17:59)
[2016-10-20] MEDS ORDERED: Sodium Chloride 0.9% 1,000 ML IV STA (18:00)
[2016-10-20 18:10] LABS: ADD MANUAL DIFF? NO
[2016-10-20 18:17] LABS: BASO # 0.01 K/mm3 (0.0-2.0); BASO % 0.1 % (0.0-3.0); EOS % 0.1 % (1.5-5.0); GRAN # 5.24 (1.4-6.5); GRAN % 56.3 % (50.0-68.0); HEMATOCRIT 31.5 % (36.0-48.0); LYMPH # 3.1 (1.2-3.4); LYMPH % 33.3 % (22.0-35.0); MEAN CELL VOLUME 72.4 fL (80.0-105.0); MEAN CORPUSCULAR HEMOGLOBIN 22.5 pg (25.0-35.0); MEAN CORPUSCULAR HGB CONC 31.1 g/dl (31.0-37.0); MEAN PLATELET VOLUME 9.3 fl (7.0-11.0); MONO % 10.2 % (1.0-6.0); PLATELET COUNT 397 10^3/uL (120.0-450.0); RED CELL DISTRIBUTION WIDTH 16.2 % (11.5-14.5); WHITE BLOOD COUNT 9.3 10^3/ul (4.5-11.0)
[2016-10-20 18:19] LABS: PH,URINE 6.5 (4.7-8.0); URINE BILIRUBIN NEGATIVE (NEGATIVE); URINE BLOOD LARGE (NEGATIVE); URINE GLUCOSE (UA) NEGATIVE (NEGATIVE); URINE KETONE NEGATIVE (NEGATIVE); URINE LEUKOCYTE ESTERASE NEGATIVE Leu/uL (NEGATIVE); URINE PROTEIN TRACE mg/dL (<30 mg/dL); URINE UROBILINOGEN 0.2 E.U./dL (<1 E.U./dL)
[2016-10-20 18:22] LABS: URINE APPEARANCE CLEAR (CLEAR); URINE COLOR YELLOW (YELLOW)
[2016-10-20 18:31] LABS: ALB/GLOB RATIO 1.1 (1.1-1.8); ALKALINE PHOSPHATASE 95 U/L (38-133); ALT/SGPT 25 U/L (7-56); AST/SGOT 39 U/L (15-39); BILIRUBIN,TOTAL 0.3 mg/dL (0.2-1.3); BLOOD UREA NITROGEN 13 mg/dL (7-21); CALCIUM 9.9 mg/dL (8.4-10.5); CARBON DIOXIDE 24 mmol/L (21-33); CHLORIDE 104 mmol/L (95-110); GFR AFRICAN-AMERICAN > 60; GLUCOSE,RANDOM 148 mg/dL (70-110); POTASSIUM 4.6 mmol/L (3.6-5.0); SODIUM 140 mmol/L (132-148); TOTAL PROTEIN 8.5 g/dL (5.8-8.3)
[2016-10-20 18:53] LABS: URINE RBC TNTC /hpf (0-2)
--- NOTE | 2016-10-20 21:39 | ED PDOC ---
Arrival/HPI - General Chief Complaint: Female Genitourinary Time Seen by Provider: 10/20/16 17:31 Historian: Patient - History of Present Illness Narrative History of Present Illness (Text): 10/20/16 21:43 Patient reports 2 day history of vaginal bleeding, with passage of clots associated with lower abdominal pain. Otherwise: (+) N/V, (-) fever, (-) urinary symptoms, (-) prior salpingitis, (-) prior ectopic . Has (+) care and (+) prior OB ultrasound - patient was recently seen in this ED on 10/17/16 her labs showed : Hgb 9.2 / Hct 28.9, beta 16,939, TV US: estimated gestational age by crown-rump measurements is 6 weeks 4 days. ASSOCIATION EXECUTIVE HISTORY: 3 Para 1 AB 1 OB Yousry Past Medical History - Provider Review Nursing Documentation Reviewed: Yes - Infectious Disease Hx of Infectious Diseases: None - Reproductive Menopause: No - Cardiac Hx Cardiac Disorders: No - Pulmonary Hx Respiratory Disorders: No - Neurological Hx Neurological Disorder: No - HEENT Hx HEENT Disorder: No - Endocrine/Metabolic Hx Endocrine Disorders: Yes Hx Hyperthyroidism: Yes Other/Comment: Over Active Thyroid - Hematological/Oncological Hx Blood Disorders: No - Integumentary Hx Dermatological Disorder: No - Musculoskeletal/Rheumatological Hx Musculoskeletal Disorders: No - Gastrointestinal Hx Gastrointestinal Disorders: No - Genitourinary/Gynecological Hx Genitourinary Disorders: No - Psychiatric Hx Psychophysiologic Disorder: No Hx Substance Use: No - Anesthesia Hx Anesthesia: No Family/Social History - Physician Review Nursing Documentation Reviewed: Yes Family/Social History: No Known Family HX Smoking Status: Never Smoked Hx Alcohol Use: No Hx Substance Use: No Allergies/Home Meds Allergies/Adverse Reactions: Allergies No Known Allergies Allergy (Verified 10/08/16 12:29) Review of Systems - Review of Systems Constitutional: Normal. absent: Fatigue, Weight Change, Fevers Respiratory: Normal. absent: SOB, Cough, Sputum Cardiovascular: Normal. absent: Chest Pain, Palpitations, Edema Gastrointestinal: Normal, Abdominal Pain. absent: Stool Changes, Appetite Changes Genitourinary Female: Normal, Vaginal Bleeding. absent: Dysuria, Frequency, Hematuria Musculoskeletal: Normal. absent: Arthralgias, Back Pain, Neck Pain Skin: Normal. absent: Rash, Pruritis, Skin Lesions Physical Exam - Physical Exam Narrative Physical Exam (Text): 10/20/16 21:42 GENERAL APPEARANCE: Patient is awake, alert, oriented x 3, in moderate painful distress. SKIN: Warm, dry; (-) cyanosis. EYES: (-) conjunctival pallor. ENMT: Mucous membranes moist. NECK: (-) tenderness, (-) stiffness, (-) lymphadenopathy. CHEST AND RESPIRATORY: (-) rales, (-) rhonchi, (-) wheezes; breath sounds equal bilaterally. HEART AND CARDIOVASCULAR: (-) irregularity; (-) murmur, (-) gallop. ABDOMEN AND GI: Soft; (+) lower abdominal tenderness. EXTREMITIES: (-) deformity. NEURO AND PSYCH: Mental status as above; (-) focal findings. Vital Signs Temp Pulse Resp BP Pulse Ox 10/20/16 23:47 16 120/72 99 10/20/16 23:22 102 H 16 120/72 100 10/20/16 16:56 98.7 F 110 H 18 113/59 L 99 Medical Decision Making ED Course and Treatment: 10/20/16 21:40 26-year-old female approximately 7 weeks, presents with lower abdominal pain and vaginal bleeding with passage of clots which started last night. Plan: -- Labs -- IV fluids -- Urinalysis -- Morphine / Zofran -- Reassess and disposition -- US TV - Lab Interpretations I have reviewed the lab results: Yes (Hgb 9.8 Hct 31.5 beta quant 13,785) - RAD Interpretation Narrative RAD Interpretations (Text): 10/20/16 21:38 US TV: FINDINGS: Uterus/cervix: The gestational sac is in the cervix, and there is no heart rate seen. This is a new finding, consistent with a failing in this patient with heavy bleeding., Right ovary: Cysts in the right ovary one which is likely a corpus luteum. Normal blood flow. Left ovary: Unremarkable. No mass. Normal blood flow. Free fluid: No free fluid. IMPRESSION: The gestational sac is in the cervix, and there is no heart rate seen. This is a new finding, consistent with a failing in this patient with heavy bleeding. Thank you for allowing us to participate in the care of your patient. Dictated and Authenticated by: Albert Henderson MD 10/20/2016 7:45 PM Eastern Time ([place] & [place]) Radiology Orders: 10/20/16 17:59 TRANSVAGINAL [US] Stat - Medication Orders Current Medication Orders: Discontinued Medications Sodium Chloride (Sodium Chloride 0.9%) 1,000 mls @ 1,000 mls/hr IV .Q1H STA Stop: 10/20/16 18:59 Last Admin: 10/20/16 18:08 Dose: 1,000 mls/hr Morphine Sulfate (Morphine) 4 mg IVP STAT STA Stop: 10/20/16 18:00 Last Admin: 10/20/16 18:06 Dose: 4 mg Ondansetron HCl (Zofran Inj) 4 mg IVP STAT STA Stop: 10/20/16 18:00 Last Admin: 10/20/16 18:06 Dose: 4 mg ED OBSERVATION Date of observation admission: 10/20/16 Time of observation admission: 18:00 - Observation admission statement Patient is being placed in observation because:: Due to patient's history and current symptoms patient will need an ultrasound and labs to rule out possible miscarriage. - Goals of Observation Goals of observation are:: To monitor the patient's signs and symptoms, as well as monitor the patient's response to treatment. - Progress Note Progress Note: 10/20/16 20:10 Labs reviewed and are within normal limits. On reevaluation, patient reports significant improvement in pain, reports of continued mild vaginal bleeding with passage of small clots. Patient is awaiting for ultrasound at this time. Has no other complaints. Labs: Hgb 9.8 Hct 31.5 beta 13,785, type & screen O+ 10/20/16 22:00 Patient returned from ultrasound without any incident. data communications technician called and spoke to the PA, was notified of ultrasound findings which shows positive sac that is within the cervix, consistent with a inevitable miscarriage. Official ultrasound results still pending at this time. Official ultrasound results reviewed and discussed with the patient in great detail. On reevaluation, patient reports continued improvement of pain. On exam , abdomen remains soft with (-) tenderness. Pelvic: External genitalia WNL. (+ ) mild to moderate bleeding from closed cervical os, (-) tissue. A female RN, Mariaelena, was present with me during the entire examination. Based on history, exam and diagnostic results plan will be for outpatient follow -up with her OB. Advised to take [id number] Aleve as needed for pain. Patient states she fully agrees with and understands discharge instructions. States that she agrees with the plan and disposition. Verbalized and repeated discharge instructions and plan. I have given the patient opportunity to ask any additional questions. Follow up with her OB physician in 1-2 days without fail. Return to the emergency room at any time for any new or worsening symptoms. - PA / FLEET MAINTENANCE FOREMAN / Resident Statement MD/DO has reviewed & agrees with the documentation as recorded. Disposition/Present on Arrival - Present on Arrival Any Indicators Present on Arrival: No History of DVT/PE: No History of Uncontrolled Diabetes: No Urinary Catheter: No History of Decub. Ulcer: No History Surgical Site Infection Following: None - Disposition Have Diagnosis and Disposition been Completed?: Yes Diagnosis: Miscarriage Disposition: HOME/ ROUTINE Disposition Time: 18:00 (Pt placed in ED observation) Patient Plan: Discharge Condition: GOOD
[2016-10-20 23:23] VITALS: BP 120/72; PULSE 102; RESP 16
[2016-10-20 23:48] VITALS: O2SAT 99
--- NOTE | 2016-10-21 11:12 | US ---
PROCEDURE: HISTORY: abd pain, vag bleed COMPARISON: TECHNIQUE: FINDINGS: The uterus measures 9.6 x 4.5 x 6.3 centimeters. There is an intrauterine gestational sac measuring 1.1 cm corresponding to 5 weeks and 2 days gestational age, low in the lower uterine segment/cervical region. There is no heart motion. Otherwise the endometrium is thickened and heterogeneous measuring 1.6 centimeters. Left ovary is unremarkable. The right ovary contains scattered follicles. There is no free fluid the pelvis. IMPRESSION: Gestational sac noted in the cervical region without evidence of heart motion. Impending is not excluded. Correlate clinically.
== END 2016-10-20 23:27 | disposition home or self-care (01) ==
LOC: ED 16:35 → EROBSV 18:00
PROVIDERS: ADMIT Student in an Organized Health Care Education/Training Program; ATTEND Student in an Organized Health Care Education/Training Program
DX: O03.9 Complete or unspecified spontaneous abortion without complication (principal)
CPT/HCPCS: 76830; 80053; 81001; 84702; 85025; 86850; 86900; 87086; 96361; 96374; 96375; 99284; G0378; J2270; J2405; J7040

== ENCOUNTER 2017-10-17 09:52 | Emergency (ER) | payer BC ==
[2017-10-17 09:53] VITALS: BMI 25.2
[2017-10-17 10:46] LABS: BASO # 0.02 K/mm3 (0.0-2.0); BASO % 0.2 % (0.0-3.0); EOS # 0.1 (0.0-0.7); EOS % 0.6 % (1.5-5.0); GRAN # 3.77 (1.4-6.5); GRAN % 45.7 % (50.0-68.0); HEMOGLOBIN 10.8 g/dL (12.0-16.0); LYMPH # 3.8 (1.2-3.4); LYMPH % 46.4 % (22.0-35.0); MEAN CELL VOLUME 77.6 fl (80.0-105.0); MEAN CORPUSCULAR HEMOGLOBIN 24.7 pg (25.0-35.0); MEAN CORPUSCULAR HGB CONC 31.8 g/dl (31.0-37.0); MEAN PLATELET VOLUME 9.5 fl (7.0-11.0); MONO # 0.6 (0.1-0.6); MONO % 7.1 % (1.0-6.0); RBC 4.38 10^6/uL (3.5-6.1); RED CELL DISTRIBUTION WIDTH 15.2 % (11.5-14.5); URINE BILIRUBIN NEGATIVE (NEGATIVE); URINE BLOOD NEGATIVE (NEGATIVE); URINE GLUCOSE (UA) NEGATIVE (NEGATIVE); URINE LEUKOCYTE ESTERASE TRACE Leu/uL (NEGATIVE); URINE PROTEIN NEGATIVE mg/dL (<30 mg/dL); URINE UROBILINOGEN 0.2 E.U./dL (<1 E.U./dL); WHITE BLOOD COUNT 8.3 10^3/ul (4.5-11.0)
[2017-10-17 10:47] LABS: URINE APPEARANCE CLEAR (CLEAR); URINE COLOR YELLOW (YELLOW)
[2017-10-17] MEDS ORDERED: cefTRIAXone 2 GM IN NS 2 GM/100 ML BAG IVPB STA (10:48)
--- NOTE | 2017-10-17 10:55 | ED PDOC ---
Arrival/HPI - General Historian: Patient - Critical Care Critical Care Minutes: 30 minutes <Beltran Galeano - Last Filed: 10/17/17 12:17> - History of Present Illness Time/Duration: < week Symptom Onset: Sudden Activities at Onset: Rest Context: Home <Cortez Holm - Last Filed: 10/17/17 19:49> - General Chief Complaint: Abdominal Pain Time Seen by Provider: 10/17/17 09:56 - Critical Care Narrative Critical Care (Text): 10/17/17 10:53 This is a 27 yo A2 AA F with PMH of hyperthyroidism with exophthalmos (med noncompliance, off methimasole x1 yr) and spontaneous x2 who presents with complaint of burning/pain with urination x2 days. Patient reports sexually active, 1 partner, uses protection (questionable given findings test), FDP September 27. Periods regular monthly since miscarriage October 2016. Denies hematuria, flank pain, marline pus expressed, chest pain, shortness of breath, nausea, emesis. Pain is only along groin line, and only with urination, not otherwise present. Denies prior history of pyelonephritis. Unsure why previous births miscarried, believes it was due to her methimazole. Follows with PMD and [facility] in [place] for normal care. Urine test positive on arrival, patient not aware she was possibly . All other ROS in 12-system review negative. PMH: as above PSH: denies Fam Hx: denies Soc Hx: denies tobacco/alcohol/illicits/IVDA hx: A2, last was miscarriage October 2016 PMD: ____ in [place] (Beltran Galeano) Past Medical History - Infectious Disease Hx of Infectious Diseases: None - Cardiac Hx Cardiac Disorders: No - Pulmonary Hx Respiratory Disorders: No - Neurological Hx Neurological Disorder: No - HEENT Hx HEENT Disorder: No - Renal Hx Renal Disorder: No - Endocrine/Metabolic Hx Endocrine Disorders: Yes Hx Hyperthyroidism: Yes - Hematological/Oncological Hx Blood Disorders: No - Integumentary Hx Dermatological Disorder: No - Musculoskeletal/Rheumatological Hx Musculoskeletal Disorders: No - Gastrointestinal Hx Gastrointestinal Disorders: No - Genitourinary/Gynecological Hx Genitourinary Disorders: No - Psychiatric Hx Psychophysiologic Disorder: No Hx Substance Use: No - Anesthesia Hx Anesthesia: No <Beltran Galeano - Last Filed: 10/17/17 12:17> - Provider Review Nursing Documentation Reviewed: Yes - Travel History Have you recently traveled outside [place] w/in the past 3 mons?: No - Past History Past History: No Previous - Reproductive Menopause: No Currently : Unknown <Cortez Holm - Last Filed: 10/17/17 19:49> Family/Social History Family/Social History: No Known Family HX Smoking Status: Never Smoked Hx Alcohol Use: No Hx Substance Use: No <FroylanBeltran - Last Filed: 10/17/17 12:17> - Physician Review Nursing Documentation Reviewed: Yes Hx Substance Use Treatment: No <MihaiCortez - Last Filed: 10/17/17 19:49> Allergies/Home Meds <FroylanBeltran - Last Filed: 10/17/17 12:17> <Cortez Holm - Last Filed: 10/17/17 19:49> Allergies/Adverse Reactions: Allergies No Known Allergies Allergy (Verified 10/17/17 09:55) Review of Systems - Review of Systems Constitutional: Normal. absent: Fatigue, Fevers Eyes: Normal. absent: Vision Changes ENT: Normal. absent: Sore Throat, Rhinorrhea Respiratory: Normal. absent: SOB, Cough Cardiovascular: Normal. absent: Chest Pain, Palpitations, Edema, PARKER, Syncope Gastrointestinal: Abdominal Pain (groin line pain with urination only, none otherwise). absent: Stool Changes, Constipation, Diarrhea, Nausea, Vomiting, Food Intolerance Genitourinary Female: Dysuria (burning and pain with urination only). absent: Hematuria, Vaginal Bleeding, Vaginal Discharge Musculoskeletal: Normal. absent: Back Pain, Neck Pain Skin: Normal. absent: Rash, Pruritis Neurological: Normal. absent: Headache, Dizziness Endocrine: Normal. absent: Diaphoresis Psychiatric: Normal. absent: Anxiety <FroylanBeltran - Last Filed: 10/17/17 12:17> Physical Exam Vital Signs Reviewed: Yes Temperature: Afebrile Blood Pressure: Normal Pulse: Regular Respiratory Rate: Normal Appearance: Positive for: Well-Appearing, Non-Toxic, Comfortable Pain Distress: None (at time of exam, reports mild with symptom onset) Mental Status: Positive for: Alert and Oriented X 3 - Systems Exam Head: Present: Atraumatic, Normocephalic Pupils: No: Pinpoint Extroacular Muscles: Present: EOMI. No: Gaze Palsy, Entrapment Conjunctiva: Present: Normal. No: Injected, Icteric Mouth: Present: Moist Mucous Membranes, Normal Lips, Normal Tounge, Normal Teeth. No: Dry Pharnyx: Present: Normal. No: ERYTHEMA, EXUDATE Nose (External): Present: Atraumatic. No: Abrasion, Laceration Nose (Internal): Present: Normal Inspection, No Active Bleeding. No: Epistaxis Neck: Present: Normal Range of Motion. No: JVD Respiratory/Chest: Present: Clear to Auscultation, Good Air Exchange. No: Respiratory Distress, Accessory Muscle Use, Wheezes, Decreased Breath Sounds, Rales, Rhonchi Cardiovascular: Present: Murmurs (holosystolic, most prominent at Left 2nd-3rd rib interspace), Normal S1, S2, Tachycardic (rapid rate, regular rhythm). No: Regular Rate and Rhythm, Irregular Rhythm, Bradycardic Abdomen: Present: Normal Bowel Sounds, Other (pain is along groin/suprapubic area, ONLY with urination, not tender to palpation). No: Tenderness, Distention Back: Present: Normal Inspection. No: CVA Tenderness, Midline Tenderness, Paraspinal Tenderness, Pain with Leg Raise Upper Extremity: Present: Normal Inspection, Normal ROM, NORMAL PULSES. No: Cyanosis, Edema, Tenderness, Swelling, Erythema Lower Extremity: Present: Normal Inspection, NORMAL PULSES, Normal ROM. No: Edema, CALF TENDERNESS, Cyanosis, Tenderness, Swelling, Erythema Neurological: Present: GCS=15, Speech Normal, Motor Func Grossly Intact, Normal Sensory Function Skin: Present: Warm, Dry, Normal Color. No: Rashes, Diaphoretic Lymphatic: No: Cervical Adenopathy Psychiatric: Present: Alert, Oriented x 3, Normal Insight, Normal Concentration , Normal Affect, Normal Mood <Beltran Galeano Filed: 10/17/17 12:17> Vital Signs Temp Pulse Resp BP Pulse Ox 10/17/17 12:57 98.9 F 79 18 128/70 100 10/17/17 11:44 99.2 F 86 18 131/79 99 10/17/17 09:57 100.1 F H 99 H 98 H 134/89 98 Medical Decision Making <Beltran Galeano Filed: 10/17/17 12:17> Re-evaluation Time: 12:00 Reassessment Condition: Improved - Lab Interpretations I have reviewed the lab results: Yes Interpretation: Abnormal lab values (+ UTI; + preg) - RAD Interpretation Vehicle Maintenance Technician: Radiologist <Cortez Holm - Last Filed: 10/17/17 19:49> ED Course and Treatment: 10/17/17 10:51 Urine test positive, so will need Beta-quantiferon ordered. Symptoms consistent with UTI, will obtain UA and Urine cx, but in setting of presumed , need to rule out pyelo, so Renal US and Transvaginal US ordered, will tx empirically with Rocephin 1g IV x1. Starting IVF. Given hx hyperthyroidism with med non-compliance and tachycardia, obtain TSH to assess. 10/17/17 11:43 Urine was erroneously reported as positive, in actuality was negative x2. Explained to patient and apologized, patient not distressed and accepting of apologies. Pending Beta-quantiferon (already obtained). Pending official reads of both ultrasounds. If negative, then pt is A2. 10/17/17 11:50 Renal US normal, no acute process. Transvaginal US negative for intrauterine gestation, notable for 2.2 cm fibroid. Labs notable for Hgb 10.8, however as per prior charting baseline appears to be 9-10, so Hgb at baseline for this patient. No leukocytosis. UA notable for trace leuk esterase, mod bacteria, 3- 5 WBCs/hpf. TSH < 0.02, consistent with hyperthyroidism off of tx. 10/17/17 12:12 Quantitative B-HGC positive at 11.65 (upper limit of normal is 6.15). Will instruct patient to follow up with [facility] for additional workup, and to follow up with PMD immediately regarding her hyperthyroidism. Scripts for Macrobid 200mg BID x 7 days and Pyridium 100mg TID x2 days transmitted to her pharmacy ( [address]). Discharged to home. Seen and examined with attending, Dr. Holm. (Beltran Galeano) In agreement with resident note, which includes further HPI details. Patient was seen and evaluated with resident, came up with plan and treatment together. I performed the hx and physical exam of the patient and discussed their mgt with the RESIDENT. I reviewed the RESIDENT's NOTE and agree with the assessment and plan of care. pt is made comfortable appearing pt is made aware of her medical results pt is encouraged fluids pt is encouraged outpt f/u pt will be discharged home (Cortez Holm) - Lab Interpretations Lab Results: 10/17/17 10:43 10/17/17 10:43 Lab Results 10/17/17 11:30: Blood Type O POSITIVE, Antibody Screen Negative, BBK History Checked Patient has bt 10/17/17 11:20: Beta HCG, Quant 11.65 H 10/17/17 10:43: Sodium 142, Potassium 4.4, Chloride 106, Carbon Dioxide 26, Anion Gap 15, BUN 10, Creatinine 0.5 L, Est GFR ( Amer) > 60, Est GFR ( Non-Af Amer) > 60, Random Glucose 98, Calcium 9.1, Phosphorus 3.4, Magnesium 1.7 , Total Bilirubin 0.1 L, AST 20, ALT 21, Alkaline Phosphatase 89, Total Protein 8.1, Albumin 4.2, Globulin 3.9, Albumin/Globulin Ratio 1.1 10/17/17 10:43: WBC 8.3, RBC 4.38, Hgb 10.8 L, Hct 34.0 L, MCV 77.6 L, MCH 24.7 L, MCHC 31.8, RDW 15.2 H, Plt Count 345, MPV 9.5, Gran % 45.7 L, Lymph % (Auto) 46.4 H, [place] % (Auto) 7.1 H, Eos % (Auto) 0.6 L, Baso % (Auto) 0.2, Gran # 3.77 , Lymph # (Auto) 3.8 H, [place] # (Auto) 0.6, Eos # (Auto) 0.1, Baso # (Auto) 0.02 10/17/17 10:43: Urine Color Yellow, Urine Appearance Clear, Urine pH 7.0, Ur Specific [place] 1.010, Urine Protein Negative, Urine Glucose (UA) Negative, Urine Ketones Negative, Urine Blood Negative, Urine Nitrate Negative, Urine Bilirubin Negative, Urine Urobilinogen 0.2, Ur Leukocyte Esterase Trace H, Urine RBC Negative, Urine WBC 2 - 5, Ur Epithelial Cells 4 - 5, Urine Bacteria Mod 10/17/17 10:30: TSH 3rd Generation < 0.02 L - RAD Interpretation Narrative RAD Interpretations (Text): 10/17/17 12:00 Renal Ultrasound: Creator : Yesenia Yung MD FINDINGS: RIGHT KIDNEY: Measures: 10.7 cm. Normal in size, contour and echogenicity. No stone, solid mass lesion or hydronephrosis visualized. LEFT KIDNEY: Measures: 10.7 cm. Normal in size, contour and echogenicity. No stone, solid mass lesion or hydronephrosis visualized. OTHER FINDINGS: None. IMPRESSION: Normal examination. 10/17/17 12:00 Transvaginal Ultrasound: Creator : Yesenia Yung MD COMPARISON: 09/24/2016. FINDINGS: UTERUS: Measures 9.6 x 4.3 x 5.9 cm. Anteverted and normal in size with there is a 2.2 x 2.2 x 2.0 cm posterior wall intramural fibroid to the right. ENDOMETRIUM: Measures thirteen mm in diameter. The central endometrial echo complex is normal in appearance. No evidence of intrauterine gestation. CERVIX: No cervical abnormality identified. RIGHT OVARY: Measures 3.2 x 2.2 x 2.5 cm. No solid mass. Normal flow. LEFT OVARY: Measures 4.0 x 2.0 x 3.3 cm. No solid mass. Normal flow. There is a 1.9 x 1.4 x 1.4 cm complicated/hemorrhagic cyst. FREE FLUID: No significant free fluid noted. OTHER FINDINGS: None. IMPRESSION: No evidence of intrauterine gestation. 2.2 cm posterior wall intramural fibroid to the right. (Cortez Holm) Radiology Orders: 10/17/17 10:30 RENAL [US] Stat 10/17/17 10:48 OB TRANSVAGINAL [US] Stat - Medication Orders Current Medication Orders: Discontinued Medications Ceftriaxone Sodium (Rocephin 2 Gm Ivpb) 2 gm in 100 mls @ 100 mls/hr IVPB STAT STA PRN Reason: Protocol Stop: 10/17/17 11:47 Last Admin: 10/17/17 11:56 Dose: 100 mls/hr eMAR Start Stop Document 10/17/17 11:56 SF (Rec: 10/17/17 11:56 SF [id number]) Intravenous Solution Start Date 10/17/17 Start Time 11:56 End Date 10/17/17 End time 12:56 Total Infusion Time 60 Sodium Chloride (Sodium Chloride 0.9%) 1,000 mls @ 150 mls/hr IV .[id number] [facility] Last Admin: 10/17/17 11:30 Dose: 150 mls/hr eMAR Start Stop Document 10/17/17 11:30 SF (Rec: 10/17/17 11:43 SF [id number]) Intravenous Solution Start Date 10/17/17 Start Time 11:30 End Date 10/17/17 <Beltran Galeano - Last Filed: 10/17/17 12:17> - PA / [employer] / Resident Statement MD/ has reviewed & agrees with the documentation as recorded. MD/DO has examined the patient and agrees with the treatment plan. - Scribe Statement The provider has reviewed the documentation as recorded by the Scribe <Cortez Holm - Last Filed: 10/17/17 19:49> - Scribe Statement Jenna Tristan Provider Scribe Attestation: All medical record entries made by the Scribe were at my direction and personally dictated by me. I have reviewed the chart and agree that the record accurately reflects my personal performance of the history, physical exam, medical decision making, and the department course for this patient. I have also personally directed, reviewed, and agree with the discharge instructions and disposition. (Cortez Holm) Disposition/Present on Arrival - Present on Arrival Any Indicators Present on Arrival: No History of DVT/PE: No History of Uncontrolled Diabetes: No Urinary Catheter: No History of Decub. Ulcer: No History Surgical Site Infection Following: None - Disposition Have Diagnosis and Disposition been Completed?: Yes Disposition Time: 12:16 Patient Plan: Discharge <Beltran Galeano - Last Filed: 10/17/17 12:17> <Cortez Holm - Last Filed: 10/17/17 19:49> - Disposition Diagnosis: UTI (urinary tract infection), Elevated serum hCG, Disposition: HOME/ ROUTINE Condition: GOOD Discharge Instructions (ExitCare): Urinary Tract Infections in Adults Additional Instructions: -You were seen in the ED for burning and pain with urination, which is concerning for a UTI. -Labs obtained while in the ED were suggestive of UTI, for which you have been prescribed Macrobid twice per day x7 days and Pyridium 3 times per day x2 days ( scripts were electronically transmitted to your pharmacy). Please fill and take the prescriptions as instructed. -Your labs were also notable for a Beta-HCG (Serum) that was elevated at 11.65. Please follow up with your [facility] for additional workup. -Please follow up with your PMD as soon as possible to review your thyroid levels and medications; your TSH level (a measure of thyroid function) was less than 0.02 (which indicates an elevated level of thyroid activity). -Please return to a hospital if you experience new or concerning symptoms. Prescriptions: Nitrofurantoin Macrocrystals [Macrobid] 100 mg PO BID #14 cap Phenazopyridine HCl [Pyridium] 100 mg PO TID #6 tablet Referrals: Mehdi Ruvalcaba, [Primary Care Provider] - Follow up with primary Forms: [employer] (Polish)
[2017-10-17 10:58] LABS: ALB/GLOB RATIO 1.1 (1.1-1.8); ALBUMIN 4.2 g/dL (3.0-4.8); ALT/SGPT 21 U/L (7-56); AST/SGOT 20 U/L (14-36); BLOOD UREA NITROGEN 10 mg/dL (7-21); CALCIUM 9.1 mg/dL (8.4-10.5); GFR AFRICAN-AMERICAN > 60; GFR NON-AFRICAN AMERICAN > 60
[2017-10-17] MEDS ORDERED: Sodium Chloride 0.9% 1,000 ML IV SCH (11:00)
[2017-10-17 11:03] LABS: URINE BACTERIA MOD (NEG); URINE RBC NEGATIVE /hpf (0-2)
--- NOTE | 2017-10-17 11:34 | US ---
PROCEDURE: Ultrasound of the Kidneys HISTORY: assess for pyelo COMPARISON: None available. TECHNIQUE: Grayscale imaging was performed. FINDINGS: RIGHT KIDNEY: Measures: 10.7 cm. Normal in size, contour and echogenicity. No stone, solid mass lesion or hydronephrosis visualized. LEFT KIDNEY: Measures: 10.7 cm. Normal in size, contour and echogenicity. No stone, solid mass lesion or hydronephrosis visualized. OTHER FINDINGS: None. IMPRESSION: Normal examination.
--- NOTE | 2017-10-17 11:38 | US ---
HISTORY: assess for COMPARISON: 09/24/2016. TECHNIQUE: Transabdominal and transvaginal pelvic ultrasound was performed. FINDINGS: UTERUS: Measures 9.6 x 4.3 x 5.9 cm. Anteverted and normal in size with there is a 2.2 x 2.2 x 2.0 cm posterior wall intramural fibroid to the right. ENDOMETRIUM: Measures thirteen mm in diameter. The central endometrial echo complex is normal in appearance. No evidence of intrauterine gestation. CERVIX: No cervical abnormality identified. RIGHT OVARY: Measures 3.2 x 2.2 x 2.5 cm. No solid mass. Normal flow. LEFT OVARY: Measures 4.0 x 2.0 x 3.3 cm. No solid mass. Normal flow. There is a 1.9 x 1.4 x 1.4 cm complicated/hemorrhagic cyst. FREE FLUID: No significant free fluid noted. OTHER FINDINGS: None. IMPRESSION: No evidence of intrauterine gestation. 2.2 cm posterior wall intramural fibroid to the right.
[2017-10-17 11:45] VITALS: RESP 18
[2017-10-17 12:57] VITALS: BP 128/70; PULSE 79; TEMP 98.9; O2SAT 100
== END 2017-10-17 13:15 | disposition home or self-care (01) ==
LOC: ED 09:52
DX: O23.40 Unspecified infection of urinary tract in pregnancy, unspecified trimester (principal); Z3A.00 Weeks of gestation of pregnancy not specified
CPT/HCPCS: 76770; 76817; 80053; 81001; 83735; 84100; 84443; 84702; 85025; 86850; 86900; 87086; 96365; 99284; J0696; J7030

== ENCOUNTER 2017-11-08 19:33 | Emergency (ER) | payer BC ==
[2017-11-08 19:41] VITALS: BMI 27.8
[2017-11-08 20:00] VITALS: RESP 18; TEMP 98.5
--- NOTE | 2017-11-08 20:08 | ED PDOC ---
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 States chest pain began yesterday while exerting herself. Pain originates in the left parasternal region and radiates to the right parasternal region. Characterized as being sharp in nature and is rated a 7/10. Denies associated palpitations, dizziness, shortness of breath, and diaphoresis. Admits to nausea with one bout of nonbloody nonbilious emesis. Also admits to baseline left inguinal region discomfort which has nonchanged since her previous visit. Denies vaginal bleeding and discharge. Denies fever, chills, abdominal pain, diarrhea, constipation, and urinary symptoms. (Danilo Hurt) Past Medical History - Provider Review Nursing Documentation Reviewed: Yes - Travel History Have you recently traveled outside [place] w/in the past 3 mons?: No - Past History Past History: No Previous - Infectious Disease Hx of Infectious Diseases: None - Cardiac Hx Cardiac Disorders: No - Pulmonary Hx Respiratory Disorders: No - Neurological Hx Neurological Disorder: No - HEENT Hx HEENT Disorder: No - Renal Hx Renal Disorder: No - Endocrine/Metabolic Hx Endocrine Disorders: Yes Hx Hyperthyroidism: Yes - Hematological/Oncological Hx Blood Disorders: No - Integumentary Hx Dermatological Disorder: No - Musculoskeletal/Rheumatological Hx Musculoskeletal Disorders: No - Gastrointestinal Hx Gastrointestinal Disorders: No - Genitourinary/Gynecological Hx Genitourinary Disorders: No - Psychiatric Hx Psychophysiologic Disorder: No Hx Substance Use: No - Anesthesia Hx Anesthesia: No <Danilo Hurt - Last Filed: 11/08/17 22:10> Family/Social History - Physician Review Nursing Documentation Reviewed: Yes Family/Social History: Unknown Family HX Smoking Status: Never Smoked Hx Alcohol Use: No Hx Substance Use: No Hx Substance Use Treatment: No <BluDanilo - Last Filed: 11/08/17 22:10> Allergies/Home Meds <JanLev - Last Filed: 11/08/17 22:02> <Hurt,Danilo - Last Filed: 11/08/17 22:10> Allergies/Adverse Reactions: Allergies No Known Allergies Allergy (Verified 10/17/17 09:55) Home Medications: Home Meds Medication Instructions Recorded Confirmed Propylthiouracil [Propylthiouracil] 50 mg Q8 11/08/17 11/08/17 Review of Systems - Review of Systems Constitutional: Normal Eyes: Normal ENT: Normal Respiratory: Normal Cardiovascular: Chest Pain Gastrointestinal: Nausea, Vomiting Genitourinary Female: Normal Musculoskeletal: Normal Skin: Normal Neurological: Normal Endocrine: Normal Hemo/Lymphatic: Normal Psychiatric: Normal <Elizabeth Hurtil - Last Filed: 11/08/17 22:10> Physical Exam Temperature: Afebrile Blood Pressure: Hypertensive Pulse: Regular Respiratory Rate: Normal Appearance: Positive for: Well-Appearing, Non-Toxic, Comfortable Pain Distress: None Mental Status: Positive for: Alert and Oriented X 3 - Systems Exam Head: Present: Atraumatic (chest pain palpaation ), Normocephalic Pupils: Present: PERRL Extroacular Muscles: Present: EOMI Conjunctiva: Present: Normal Mouth: Present: Moist Mucous Membranes Neck: Present: Normal Range of Motion Respiratory/Chest: Present: Clear to Auscultation, Good Air Exchange. No: Respiratory Distress, Accessory Muscle Use Cardiovascular: Present: Regular Rate and Rhythm, Normal S1, S2. No: Murmurs Abdomen: No: Tenderness, Distention, Peritoneal Signs Back: Present: Normal Inspection Upper Extremity: Present: Normal Inspection. No: Cyanosis, Edema Lower Extremity: Present: Normal Inspection. No: Edema Neurological: Present: GCS=15, CN II-XII Intact, Speech Normal Skin: Present: Warm, Dry, Normal Color. No: Rashes Psychiatric: Present: Alert, Oriented x 3, Normal Insight, Normal Concentration <Danilo Hurt - Last Filed: 11/08/17 22:10> Vital Signs Temp Pulse Resp BP Pulse Ox 11/08/17 20:00 98.5 F 95 H 18 125/103 H 98 Medical Decision Making <Lev Montoya - Last Filed: 11/08/17 22:02> - EKG Interpretation Interpreted by ED Physician: Yes Type: 12 lead EKG <Danilo Hurt - Last Filed: 11/08/17 22:10> ED Course and Treatment: Impression: Pt seen and evaluated with medical staffing coordinator. Pt, whose past medical history includes hyperthyroidism, P:1 A:2, presented for chest pain, nausea, vomiting, and left inguinal discomfort. Aware and agree with HPI, clinical findings, plan, and management. 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) and spontaneous x 2 who presents to the emergency room for evaluation and treatment of chest pain and left inguinal pain Chest pain - CBC, CMP, Mag, Phos - Troponins Left Inguinal pain - Tylenol 11/08/17 20:18 - Urinalysis ordered 11/08/17 22:04 - troponin negative x 1 - Urinalysis reviewed- no indication of UTI 11/08/17 22:08 - repeat blood pressure within normal limits - pain significantly improved - ok for discharge to home (Danilo Hurt) - Lab Interpretations Lab Results: 11/08/17 20:36 11/08/17 20:36 Lab Results 11/08/17 21:36: Urine Color Yellow, Urine Appearance Clear, Urine pH 6.0, Ur Specific [place] 1.020, Urine Protein Negative, Urine Glucose (UA) Negative, Urine Ketones Trace H, Urine Blood Negative, Urine Nitrate Negative, Urine Bilirubin Negative, Urine Urobilinogen 0.2, Ur Leukocyte Esterase Negative 11/08/17 20:36: Sodium 138, Potassium 4.4, Chloride 103, Carbon Dioxide 24, Anion Gap 15, BUN 14, Creatinine 0.6 L, Est GFR ( Amer) > 60, Est GFR ( Non-Af Amer) > 60, Random Glucose 101, Calcium 8.9, Phosphorus 3.5, Magnesium 2.1, Total Bilirubin < 0.1 L, AST 27, ALT 14, Alkaline Phosphatase 75, Lactate Dehydrogenase 378, Total Creatine Kinase 38, Troponin I < 0.01, Total Protein 8.2, Albumin 4.3, Globulin 3.9, Albumin/Globulin Ratio 1.1 11/08/17 20:36: WBC 11.4 H D, RBC 4.22, Hgb 10.6 L, Hct 32.7 L, MCV 77.5 L, MCH 25.1, MCHC 32.4, RDW 15.5 H, Plt Count 341, MPV 9.2, Gran % 66.8, Lymph % (Auto ) 22.8, [place] % (Auto) 9.9 H, Eos % (Auto) 0.3 L, Baso % (Auto) 0.2, Gran # 7.65 H, Lymph # (Auto) 2.6, [place] # (Auto) 1.1 H, Eos # (Auto) 0.0, Baso # (Auto) 0.02 - EKG Interpretation EKG Interpretation (Text): EKG NSR, Possible Left atrial enlargement, HR 99bpm, QTc 454ms 11/08/17 20:26 (Danilo Hurt) - Medication Orders Current Medication Orders: Discontinued Medications Acetaminophen (Tylenol 325mg Tab) 650 mg PO STAT STA Stop: 11/08/17 20:09 Last Admin: 11/08/17 20:30 Dose: 650 mg - PA / DENTAL CHAIRSIDE ASSISTANT / Resident Statement / has reviewed & agrees with the documentation as recorded. JOYA has examined the patient and agrees with the treatment plan. <Lev Montoya - Last Filed: 11/08/17 22:02> Disposition/Present on Arrival <Lev Montoya - Last Filed: 11/08/17 22:02> - Present on Arrival Any Indicators Present on Arrival: No History of DVT/PE: No History of Uncontrolled Diabetes: No Urinary Catheter: No History of Decub. Ulcer: No History Surgical Site Infection Following: None - Disposition Have Diagnosis and Disposition been Completed?: Yes Disposition Time: 22:09 Patient Plan: Discharge <Danilo Hurt - Last Filed: 11/08/17 22:10> - Disposition Diagnosis: Atypical chest pain Disposition: HOME/ ROUTINE Patient Problems: Current Active Problems Problem Status Onset Atypical chest pain Acute Condition: GOOD Discharge Instructions (ExitCare): Chest Pain (ED) Additional Instructions: DENISE AYON, thank you for letting us take care of you today. Your provider was Lev Montoya MD and you were treated for CHEST AND STOMACH PAIN, FEW WEEKS . The emergency medical care you received today was directed at your acute symptoms. If you were prescribed any medication, please fill it and take as directed. It may take several days for your symptoms to resolve. Return to the Emergency Department if your symptoms worsen, do not improve, or if you have any other problems. Please contact your doctor or call one of the physicians/clinics you have been referred to that are listed on the Patient Visit Information form that is included in your discharge packet. Bring any paperwork you were given at discharge with you along with any medications you are taking to your follow up visit. Our treatment cannot replace ongoing medical care by a primary care provider outside of the emergency department. Thank you for allowing the [facility] team to be part of your care today. If you had an X-Ray or CT scan: A Radiologist will review the ED reading if any change in treatment is needed we will contact you. If you had a blood, urine, or wound culture: It will take several days for the results, if any change in treatment is needed we will contact you. If you had an STI test: It will take 48 hours for the results. Please call after 1 week if you have not heard back. Referrals: Talisha Lopez MD [Primary Care Provider] - Follow up with primary Forms: [employer] (Kiswahili)
[2017-11-08 20:49] LABS: BASO # 0.02 K/mm3 (0.0-2.0); BASO % 0.2 % (0.0-3.0); EOS % 0.3 % (1.5-5.0); GRAN # 7.65 (1.4-6.5); GRAN % 66.8 % (50.0-68.0); HEMOGLOBIN 10.6 g/dL (12.0-16.0); LYMPH # 2.6 (1.2-3.4); LYMPH % 22.8 % (22.0-35.0); MEAN CELL VOLUME 77.5 fl (80.0-105.0); MEAN CORPUSCULAR HEMOGLOBIN 25.1 pg (25.0-35.0); MEAN CORPUSCULAR HGB CONC 32.4 g/dl (31.0-37.0); MEAN PLATELET VOLUME 9.2 fl (7.0-11.0); MONO # 1.1 (0.1-0.6); MONO % 9.9 % (1.0-6.0); RBC 4.22 10^6/uL (3.5-6.1); RED CELL DISTRIBUTION WIDTH 15.5 % (11.5-14.5); WHITE BLOOD COUNT 11.4 10^3/ul (4.5-11.0)
[2017-11-08 20:56] LABS: ALB/GLOB RATIO 1.1 (1.1-1.8); ALBUMIN 4.3 g/dL (3.0-4.8); ALT/SGPT 14 U/L (7-56); AST/SGOT 27 U/L (14-36); BLOOD UREA NITROGEN 14 mg/dL (7-21); CALCIUM 8.9 mg/dL (8.4-10.5); GFR AFRICAN-AMERICAN > 60; GFR NON-AFRICAN AMERICAN > 60
[2017-11-08 21:05] LABS: TROPONIN I < 0.01 ng/mL
[2017-11-08 21:45] LABS: URINE BILIRUBIN NEGATIVE (NEGATIVE); URINE BLOOD NEGATIVE (NEGATIVE); URINE GLUCOSE (UA) NEGATIVE (NEGATIVE); URINE LEUKOCYTE ESTERASE NEGATIVE Leu/uL (NEGATIVE); URINE PROTEIN NEGATIVE mg/dL (<30 mg/dL); URINE UROBILINOGEN 0.2 E.U./dL (<1 E.U./dL)
[2017-11-08 21:48] LABS: URINE APPEARANCE CLEAR (CLEAR); URINE COLOR YELLOW (YELLOW)
[2017-11-08 22:16] VITALS: BP 121/97; PULSE 91; O2SAT 100
--- NOTE | 2017-11-09 22:25 | CARD ---
APPROVED REPORT EKG Measurement Heart [id number] <Conclusion> Normal sinus rhythm Possible Left atrial enlargement Borderline ECG
== END 2017-11-08 22:15 | disposition home or self-care (01) ==
LOC: ED 19:33
DX: R07.89 Other chest pain (principal)

== ENCOUNTER 2018-02-12 10:24 | Emergency (ER) | payer BC, MEDICAID ==
[2018-02-12 10:48] VITALS: BMI 31.1
--- NOTE | 2018-02-12 10:55 | ED PDOC ---
Arrival/HPI <Lane Brooks - Last Filed: 02/12/18 12:24> - General Historian: Patient - History of Present Illness Narrative History of Present Illness (Text): 02/12/18 10:55 28 yo F with PMHx of hyperthyroidism with exopthalmos (med noncompliance, off methimasole x1 yr), spontaneous x2 presenting to ED with increased urinary frequency, dysuria x 1 week. Patient states she has had UTIs in the past with her first . She denies any vaginal bleeding, states her urine is clear in color. Patient is 20 weeks, 4 days . LMP was 09/27/2017. No fevers/chills, headaches, dizziness, chest pain, palpitations, sob, cough, abdominal pain, n/v/d. ROS otherwise negative. PMHx: hyperthyroidism with exopthalmos PSHx: denies Allergies: NKDA Home Medications: as per chart Family Hx: unknown Social Hx: denies alcohol, tobacco, illicit drug use; 20 weeks, 4 days . LMP 09/27/2017. Sexually active, 1 partner, denies use of protection Time/Duration: 1 week Symptom Onset: Sudden Symptom Course: Unchanged Quality: Burning Severity Level: Mild Activities at Onset: Light <José Kraft - Last Filed: 02/12/18 12:45> - General Time Seen by Provider: 02/12/18 10:35 Past Medical History - Provider Review Nursing Documentation Reviewed: Yes - Past History Past History: No Previous - Infectious Disease Hx of Infectious Diseases: None - Cardiac Hx Cardiac Disorders: No - Pulmonary Hx Respiratory Disorders: No - Neurological Hx Neurological Disorder: No - HEENT Hx HEENT Disorder: No - Renal Hx Renal Disorder: No - Endocrine/Metabolic Hx Endocrine Disorders: Yes Hx Hyperthyroidism: Yes - Hematological/Oncological Hx Blood Disorders: No - Integumentary Hx Dermatological Disorder: No - Musculoskeletal/Rheumatological Hx Musculoskeletal Disorders: No - Gastrointestinal Hx Gastrointestinal Disorders: No - Genitourinary/Gynecological Hx Genitourinary Disorders: No - Psychiatric Hx Psychophysiologic Disorder: No Hx Substance Use: No - Anesthesia Hx Anesthesia: No <José Kraft - Last Filed: 02/12/18 12:45> Family/Social History - Physician Review Nursing Documentation Reviewed: Yes Family/Social History: Unknown Family HX Smoking Status: Never Smoked Hx Alcohol Use: No Hx Substance Use: No Hx Substance Use Treatment: No <SwapnilJosé - Last Filed: 02/12/18 12:45> Allergies/Home Meds <JeradLane urbina - Last Filed: 02/12/18 12:24> <SwapnilJosé - Last Filed: 02/12/18 12:45> Allergies/Adverse Reactions: Allergies No Known Allergies Allergy (Verified 10/17/17 09:55) Home Medications: Home Meds Medication Instructions Recorded Confirmed Propylthiouracil 50 mg Q8 11/08/17 11/08/17 Review of Systems - Review of Systems Constitutional: Normal Eyes: Normal ENT: Normal Respiratory: Normal Cardiovascular: Normal Gastrointestinal: Normal Genitourinary Female: Dysuria, Frequency. absent: Hematuria, Vaginal Bleeding, Vaginal Discharge Musculoskeletal: Normal Skin: Normal Neurological: Normal Endocrine: Normal Hemo/Lymphatic: Normal Psychiatric: Normal <SwapnilJosé - Last Filed: 02/12/18 12:45> Physical Exam Vital Signs Temp Pulse Resp BP Pulse Ox 02/12/18 10:26 98.5 F 105 H 18 126/85 100 <JeradciaraLane - Last Filed: 02/12/18 12:24> - Physical Exam Narrative Physical Exam (Text): 02/12/18 11:18 No suprapubic tenderness Pt refused full u/s exam Bedside U/S performed: no acute findings normal HR 160 bpm Appearance: Positive for: Well-Appearing, Non-Toxic, Comfortable Mental Status: Positive for: Alert and Oriented X 3 - Systems Exam Head: Present: Atraumatic, Normocephalic Pupils: Present: PERRL Extroacular Muscles: Present: EOMI Conjunctiva: Present: Normal Ears: Present: Normal Mouth: Present: Moist Mucous Membranes Pharnyx: Present: Normal Neck: Present: Normal Range of Motion Respiratory/Chest: Present: Clear to Auscultation, Good Air Exchange. No: Respiratory Distress, Accessory Muscle Use, Wheezes, Rales, Retracting, Rhonchi Cardiovascular: Present: Regular Rate and Rhythm, Normal S1, S2 Abdomen: Present: Normal Bowel Sounds. No: Tenderness, Distention, Rebound, Guarding, Mass/Organomegaly Back: Present: Normal Inspection. No: CVA Tenderness Upper Extremity: Present: Normal Inspection, Normal ROM, NORMAL PULSES, Capillary Refill < 2s. No: Cyanosis, Edema, Tenderness, Swelling, Erythema Lower Extremity: Present: Normal Inspection, NORMAL PULSES, Normal ROM, Capillary Refill < 2 s. No: Edema, CALF TENDERNESS, Tenderness, Swelling Neurological: Present: CN II-XII Intact, Speech Normal Skin: Present: Warm, Dry, Normal Color. No: Rashes Psychiatric: Present: Alert, Oriented x 3, Normal Insight, Normal Concentration <José Kraft - Last Filed: 02/12/18 12:45> Medical Decision Making ED Course and Treatment: 02/12/18 12:24 28 year old female presents to the Emergency department complaining of urinary frequency and dysuria since 1 week. In agreement with resident note which contains more details about the patient. Patient seen and evaluated with resident. Came up with plan and treatment together. - Lab Interpretations Lab Results: Lab Results 02/12/18 11:15: Urine Color Yellow, Urine Appearance Clear, Urine pH 6.5, Ur Specific [place] 1.015, Urine Protein Negative, Urine Glucose (UA) 100 H, Urine Ketones Negative, Urine Blood Negative, Urine Nitrate Negative, Urine Bilirubin Negative, Urine Urobilinogen 0.2, Ur Leukocyte Esterase Negative <Lane Brooks - Last Filed: 02/12/18 12:24> ED Course and Treatment: 02/12/18 11:20 Impression: 28 yo AA F with PMHx of hyperthyroidism, spontaneous x2 presenting with increased urinary frequency, dysuria x 1 week. Plan: --UA --chlamydia/gonorrhea test --monitor and disposition <José Kraft - Last Filed: 02/12/18 12:45> - PA / DIVER ASSISTANT / Resident Statement / has reviewed & agrees with the documentation as recorded. / has examined the patient and agrees with the treatment plan. - Scribe Statement The provider has reviewed the documentation as recorded by the Venecia Belle. All medical record entries made by the Venecia were at my direction and personally dictated by me. I have reviewed the chart and agree that the record accurately reflects my personal performance of the history, physical exam, medical decision making, and the department course for this patient. I have also personally directed, reviewed, and agree with the discharge instructions and disposition. <Lane Brooks - Last Filed: 02/12/18 12:24> Disposition/Present on Arrival <Lane Brooks - Last Filed: 02/12/18 12:24> - Present on Arrival Any Indicators Present on Arrival: No History of DVT/PE: No History of Uncontrolled Diabetes: No Urinary Catheter: No History Surgical Site Infection Following: None - Disposition Have Diagnosis and Disposition been Completed?: Yes Disposition Time: 12:45 <José Kraft - Last Filed: 02/12/18 12:45> - Disposition Diagnosis: Dysuria Disposition: HOME/ ROUTINE Patient Problems: Current Active Problems Problem Status Onset Dysuria Acute Condition: STABLE Discharge Instructions (ExitCare): Dysuria, Adult (DC) Additional Instructions: return to er with worsening symptoms or concerns. follow up with obgyn. Referrals: Belinda Zheng MD [Staff Provider] - Follow up with primary Talisha Lopez MD [Primary Care Provider] - Follow up with primary
[2018-02-12 10:59] VITALS: TEMP 98.5
[2018-02-12 11:05] VITALS: RESP 18; O2SAT 100
[2018-02-12 11:44] LABS: PH,URINE 6.5 (4.7-8.0); URINE BILIRUBIN NEGATIVE (NEGATIVE); URINE BLOOD NEGATIVE (NEGATIVE); URINE GLUCOSE (UA) 100 mg/dL (NEGATIVE); URINE LEUKOCYTE ESTERASE NEGATIVE Leu/uL (NEGATIVE); URINE PROTEIN NEGATIVE mg/dL (<30 mg/dL); URINE UROBILINOGEN 0.2 E.U./dL (<1 E.U./dL)
[2018-02-12 11:46] LABS: URINE APPEARANCE CLEAR (CLEAR); URINE COLOR YELLOW (YELLOW)
[2018-02-12 12:47] VITALS: BP 116/80; PULSE 98
== END 2018-02-12 13:00 | disposition home or self-care (01) ==
LOC: ED 10:24
DX: R30.0 Dysuria (principal)

== ENCOUNTER 2018-06-03 19:21 | Emergency (ER) | payer BC, MEDICAID, OTHER ==
[2018-06-03 19:28] VITALS: BMI 36.0
[2018-06-03 20:26] VITALS: RESP 20; TEMP 97.6
[2018-06-03 20:39] LABS: URINE BILIRUBIN NEGATIVE (NEGATIVE); URINE BLOOD NEGATIVE (NEGATIVE); URINE GLUCOSE (UA) NEGATIVE (NEGATIVE); URINE LEUKOCYTE ESTERASE NEGATIVE Leu/uL (NEGATIVE); URINE PROTEIN NEGATIVE mg/dL (<30 mg/dL); URINE UROBILINOGEN 0.2 E.U./dL (<1 E.U./dL)
[2018-06-03 20:41] LABS: URINE APPEARANCE CLEAR (CLEAR); URINE COLOR LIGHT YELLOW (YELLOW)
[2018-06-03 20:45] VITALS: O2SAT 98
--- NOTE | 2018-06-03 21:20 | ED PDOC ---
Arrival/HPI - General Chief Complaint: Female Genitourinary Time Seen by Provider: 06/03/18 19:53 Historian: Patient - History of Present Illness Narrative History of Present Illness (Text): 06/03/18 20:00 Latricia Willis is a 28 year old female, whose past medical history includes hyperthyroidism with exophthalmos, currently 36 weeks , who presents to the Emergency department complaining of dysuria since yesterday. Patient denies any fever, chills, nausea, vomiting, diarrhea, back pain, neck pain, headache, dizziness, or any other complaints. Symptom Onset: Gradual Symptom Course: Unchanged Activities at Onset: Light Context: Home Past Medical History - Provider Review Nursing Documentation Reviewed: Yes - Past History Past History: No Previous - Infectious Disease Hx of Infectious Diseases: None - Cardiac Hx Cardiac Disorders: No - Pulmonary Hx Respiratory Disorders: No - Neurological Hx Neurological Disorder: No - HEENT Hx HEENT Disorder: No - Renal Hx Renal Disorder: No - Endocrine/Metabolic Hx Endocrine Disorders: Yes Hx Hyperthyroidism: Yes - Hematological/Oncological Hx Blood Disorders: No - Integumentary Hx Dermatological Disorder: No - Musculoskeletal/Rheumatological Hx Musculoskeletal Disorders: No - Gastrointestinal Hx Gastrointestinal Disorders: No - Genitourinary/Gynecological Hx Genitourinary Disorders: No - Psychiatric Hx Psychophysiologic Disorder: No Hx Substance Use: No - Surgical History Hx Section: Yes (01/17/12) - Anesthesia Hx Anesthesia: Yes Family/Social History - Physician Review Nursing Documentation Reviewed: Yes Family/Social History: Unknown Family HX Smoking Status: Never Smoked Hx Alcohol Use: No Hx Substance Use: No Hx Substance Use Treatment: No Allergies/Home Meds Allergies/Adverse Reactions: Allergies No Known Allergies Allergy (Verified 06/03/18 19:27) Home Medications: Home Meds Medication Instructions Recorded Confirmed Propylthiouracil 50 mg Q8 18 06/03/18 Review of Systems - Physician Review All systems were reviewed & negative as marked: Yes - Review of Systems Constitutional: Normal. absent: Fevers Eyes: Normal ENT: Normal Respiratory: Normal. absent: SOB, Cough Cardiovascular: Normal. absent: Chest Pain Gastrointestinal: Normal. absent: Abdominal Pain, Diarrhea, Nausea, Vomiting Genitourinary Female: Dysuria, Other (no labor pains). absent: Frequency, Hematuria, Urine Output Changes Musculoskeletal: Normal. absent: Back Pain, Neck Pain Skin: Normal. absent: Rash Neurological: Normal. absent: Headache, Dizziness Endocrine: Normal Hemo/Lymphatic: Normal Psychiatric: Normal Physical Exam Vital Signs Reviewed: Yes Vital Signs Temp Pulse Resp BP Pulse Ox 06/03/18 20:44 110 H 20 160/85 H 98 06/03/18 19:21 97.6 F 105 H 20 111/72 97 Temperature: Afebrile Blood Pressure: Normal Pulse: Regular Respiratory Rate: Normal Appearance: Positive for: Well-Appearing, Non-Toxic, Comfortable Pain Distress: None Mental Status: Positive for: Alert and Oriented X 3 - Systems Exam Head: Present: Atraumatic, Normocephalic Pupils: Present: PERRL Extroacular Muscles: Present: EOMI Conjunctiva: Present: Normal Mouth: Present: Moist Mucous Membranes Neck: Present: Normal Range of Motion Respiratory/Chest: Present: Clear to Auscultation, Good Air Exchange. No: Respiratory Distress, Accessory Muscle Use Cardiovascular: Present: Regular Rate and Rhythm, Normal S1, S2. No: Murmurs Abdomen: No: Tenderness, Distention, Peritoneal Signs Back: Present: Normal Inspection Upper Extremity: Present: Normal Inspection. No: Cyanosis, Edema Lower Extremity: Present: Normal Inspection. No: Edema Neurological: Present: GCS=15, CN II-XII Intact, Speech Normal Skin: Present: Warm, Dry, Normal Color. No: Rashes Psychiatric: Present: Alert, Oriented x 3, Normal Insight, Normal Concentration Medical Decision Making ED Course and Treatment: 06/03/18 20:00 Impression: 28 year old female, 36 weeks , presented for dysuria. Differential Diagnosis included but are not limited to: UTI vs dysuria Plan: -- Urinalysis -- Reassess and disposition Prior Visits: Notes and results from previous visits were reviewed. Progress Notes: - Lab Interpretations Lab Results: Urine Color Light yellow (YELLOW) 06/03/18 20:26 Urine Appearance Clear (CLEAR) 06/03/18 20: Urine pH 7.0 (4.7-8.0) 06/03/18 20: Ur Specific [place] 1.020 (1.005-1.035) 06/03/18 20: Urine Protein Negative mg/dL (<30 mg/dL) 06/03/18 20: Urine Glucose (UA) Negative mg/dL (NEGATIVE) 06/03/18 20:26 Urine Ketones Negative mg/dL (NEGATIVE) 06/03/18 20:26 Urine Blood Negative (NEGATIVE) 06/03/18 20:26 Urine Nitrate Negative (NEGATIVE) 06/03/18 20:26 Urine Bilirubin Negative (NEGATIVE) 06/03/18 20:26 Urine Urobilinogen 0.2 E.U./dL (<1 E.U./dL) 06/03/18 20:26 Ur Leukocyte Esterase Negative [place]/uL (NEGATIVE) 06/03/18 20:26 I have reviewed the lab results: Yes - Scribe Statement The provider has reviewed the documentation as recorded by the Venecia Romeo Provider Scribe Attestation: All medical record entries made by the Scribe were at my direction and personally dictated by me. I have reviewed the chart and agree that the record accurately reflects my personal performance of the history, physical exam, medical decision making, and the department course for this patient. I have also personally directed, reviewed, and agree with the discharge instructions and disposition. Disposition/Present on Arrival - Present on Arrival Any Indicators Present on Arrival: No History of DVT/PE: No History of Uncontrolled Diabetes: No Urinary Catheter: No History of Decub. Ulcer: No History Surgical Site Infection Following: None - Disposition Have Diagnosis and Disposition been Completed?: Yes Diagnosis: Dysuria Disposition: HOME/ ROUTINE Disposition Time: 21:40 Condition: GOOD Discharge Instructions (ExitCare): Dysuria, Adult (DC) Forms: [employer] (Cuban)
[2018-06-03 21:39] VITALS: BP 151/82; PULSE 98
== END 2018-06-03 22:00 | disposition home or self-care (01) ==
LOC: ED 19:21
DX: O26.893 Other specified pregnancy related conditions, third trimester (principal); Z3A.36 36 weeks gestation of pregnancy